=== PATIENT | female | born 1980 | race Caucasian/White ===

== ENCOUNTER 2020-02-27 06:14 | Inpatient (IN) | payer SELFPAY ==
--- NOTE | 2020-02-26 06:41 | PCM.LDHP ---
L&D History of Present Illness - General Date of Service: 02/27/20 Admit Problem/Dx: Admission Diagnosis/Problem Admission Diagnosis/Problem 02/26/20 06:26 Tasha is a 39-year-old 5 para 4004 white female who was admitted for medical induction on 02/27/2020 at a gestational age of 38-2/7 weeks and an MAKAYLA of 03/10/2020 with a diagnosis of synechial band within the uterus complicating . Source of Information: Patient History Limitations: Reports: No Limitations - History of Present Illness Introduction:: Tasha is a 39-year-old 5 para 4004 white female who was admitted for medical induction on 02/27/2020 at a gestational age of 38-2/7 weeks and an MAKAYLA of 03/10/2020 with a diagnosis of synechial band within the uterus complicating .Procedure/process of induction of labor its risks, benefits and alternatives of care including allowing for natural onset of labor all discussed in detail with patient. She appears to understand and wishes to proceed. LOG BRANDER history: Tasha is a 5 para 4004. Her MAKAYLA is 03/10/2020 is based upon a certain last menstrual period starting 06/04/2019 and supported by numerous ultrasounds during the course of the . She is noted at her 24 week ultrasound that she had a hypo-coiled cord and a synechial band seen within the uterus. Patient is followed on a very regular basis with biophysical profiles after 32 weeks which showed normal growth. Her biophysical Profiles have always been 8/8 indicating well-being. She is admitted for induction of labor because of the hypo-coiled cord and the synechial band. She had menarche at age 12. Cycles every 28 days. She is not using any control at the time of conception. Her last menstrual period was definite. Her course was initiated at 11 weeks and 2 days. She was seen on a very regular basis throughout the . Her weight gain was from 173 pounds up to 183 pounds for a 10 pound increase. Patient had an abnormal glucose tolerance test and was diagnosed with gestational diabetes. She has been diet controlled with good blood sugar results. She has a history of slightly decreased platelet count. She has desire for epidural in labor. She underwent prequel noninvasive testing early in the and this was normal. She had her flu shot on 08/09/2019. She is hypothyroid on replacement, clinically euthyroid with normal laboratory testing on most recent evaluation in the .. Her group B strep screen is negative. Patient is rubella immune. Past obstetric history includes the followin. Male infant born 02/24/2007 at 40 weeks gestational age�13 hours of labor�7 lbs. 3 oz.�[place], [place]�forceps delivery�epidural�child's name is Naldo 2. Male infant born 1 [id number]�40 weeks gestational age�7 hours labor�7 lbs. 3 oz.� �epidural�[place]'s name is Arnie 3. Female infant born 72 weeks gestational age�7 hours of labor�7 lbs. 0 oz.��epidural�[place]'s name is Rossy 4. Male born 326 weeks gestational age�7 hours labor�8 lbs. 6 oz. ��epidural�[place]'s name is Ethan Laboratory testing and shows blood to be AB+. Antibody screen is negative. At first visit Hemoglobin is 12.4 g/dL. And Platelets were 189,000. She is rubella immune. Hepatitis B surface antigen and HIV assays were both negative. Gonorrhea and chlamydia tests were negative. TSH on 09/18/2019 was 4.429 units per milliliter. Second trimester hemoglobin was 11.3 g/dL and platelets are 167,000. Her 1 hour glucose was 152. Three-hour glucose was abnormal with a fasting sugar of 86. Her 1 hour sugar was 205, 2 hour sugar 216 three-hour sugar 107. Follow-up CBC on 01/16/2020 showed platelets of 149,000 and hemoglobin 11.9%. RPR was nonreactive. Group B strep screen was negative. Allergies: None Medications: 1. Levothyroxine sodium 125 �g per day 2. Citalopram 20 mg by mouth daily 3. vitamins daily Past medical history: 1. Anxiety on meds 2. Hypothyroidism secondary to thyroidectomy in 2006 3. History of abnormal Pap smear status post LEEP 2004 Past surgical history: 1. LEEP for cervical dysplasia 2004 2. Thyroidectomy 2006 Family history: Nephew of mother has autism. Mother is alive and well but did have a heart attack at age 62. Father is alive with history of melanoma. Maternal grandmother is at age 47 from an [place]. Maternal grandfather age 95 cause unknown. No family history of bleeding or anesthesia problems or -related problems. Social history: Patient is . She lives in [place], [place]. She is an financial accountant. She is a college graduate. 's name is Keo. She does not use any significant amounts of alcohol, drugs or tobacco. Review of systems: In general patient has no complaints. AB has been active. Skin: Negative Lungs: No infectious symptoms or shortness of breath Cardiovascular: No chest pain or exercise intolerance Breasts: No lumps, changes in size, pain, dimpling, discharge or axillary or supraclavicular concerns. Changes associated with . Patient plans to breast-feed GI: Negative : Body habitus changes associated with . Musculoskeletal: Negative Neurological: Negative In general the patient is well-developed, well-nourished, pleasant female of stated age in no acute distress. Skin is warm dry without lesions. HEENT, neck and back within normal limits. Lungs are clear with good breath sounds in all lung tian. Cardiovascular exam shows regular and rhythm without murmurs. Breast exam is deferred having been done at first visit found to be normal is not repeated at this time. Abdomen is gravid with fundal height of 38 cm. Baby in vertex presentation by Sixto maneuver.. Genital per digital exam on 02/20/2020 shows cervix to be 2 placentas, 60% effaced, soft, posterior, -4 position.. Extremities and neurological exam are grossly within normal limits. H&P Review of Systems - Review of Systems: Review Of Systems: See Below L&D Exam - Exam Exam: See Below Problem List Initiated/Reviewed/Updated: Yes Assessment/Plan Comment:: 1. 38-2/7 week gestation on 02/27/2020 at the time of admission for a medical induction done for uterine synechial band and hypo coiled umbilical cord. 2.Group B strep negative 3. Desires epidural in labor and delivery 4. Gestational diabetes�diet controlled 5. History of hypothyroidism secondary to thyroidectomy on replacement� clinically euthyroid with normal thyroid labs on most recent evaluation 6. Prequel noninvasive testing within normal limits for trisomy 21, 18 , 13. 7. Anxiety�has been on citalopram throughout the . 8. Mildly decreased platelets�on most recent evaluation should be adequate for regional anesthesia if desired. 9. Patient has received her flu immunization during 10. Patient plans to breast-feed. Plan: 1. Pitocin induction of labor with AROM augmentation. 2. Epidural when necessary 3. Support breast-feeding plan 4. CBC and RPR upon admission 5. Closely monitor heart tones 6. Continue levothyroxin .
[2020-02-27] MEDS ORDERED: Ondansetron 4 MG/2 ML SDV IVPUSH PRN (07:42)
[2020-02-27] MEDS ORDERED: Sodium Chloride 0.9% 10 ML Syringe FLUSH PRN (07:42)
[2020-02-27] MEDS ORDERED: Nalbuphine 10 MG/ML Syringe IVPUSH PRN (07:42)
[2020-02-27] MEDS ORDERED: Oxytocin/Lactated Ringers 10 UNIT/1,000 ML BAG IV SCH ×2 (07:45)
[2020-02-27] MEDS: Lactated Ringers 1,000 ML IV SCH ×2 (08:02→14:02)
--- NOTE | 2020-02-27 09:46 | PCM.PREANE ---
Preanesthetic Assessment - Anesthesia/Transfusion/Family Hx Anesthesia History: Prior Anesthesia Without Reaction Transfusion History: No Prior Transfusion(s) Type of Transfusion Reactions: Reports: Unknown - Review of Systems General: No Symptoms Pulmonary: No Symptoms Cardiovascular: No Symptoms Gastrointestinal: No Symptoms Neurological: No Symptoms Other: Reports: Diabetes (Gestational) - Physical Assessment Vital Signs: Last Vital Signs Temp 98.3 F 02/27/20 07:42 Pulse 72 02/27/20 07:42 Resp 16 02/27/20 07:42 BP 118/64 02/27/20 07:42 Pulse Ox 98 02/27/20 07:42 Height: 1.68 m Weight: 84.368 kg ASA Class: 2 Mental Status: Alert & Oriented x3 Airway Class: Mallampati = 2 Dentition: Reports: Normal Dentition Thyro-Mental Finger Breadths: 3 Mouth Opening Finger Breadths: 3 ROM/Head Extension: Full Lungs: Clear to Auscultation, Normal Respiratory Effort - Lab Values: Laboratory Last Values WBC 8.70 K/mm3 (3.98-10.04) 02/27/20 08:00 RBC 3.98 M/mm3 (3.98-5.22) 02/27/20 08:00 Hgb 11.8 gm/dl (11.2-15.7) 02/27/20 08:00 Hct 36.6 % (34.1-44.9) 02/27/20 08:00 MCV 92.0 fl (79.4-94.8) 02/27/20 08:00 MCH 29.6 pg (25.6-32.2) 02/27/20 08:00 MCHC 32.2 g/dl (32.2-35.5) 02/27/20 08:00 RDW Std Deviation 45.1 fL (36.4-46.3) 02/27/20 08:00 Plt Count 131 K/mm3 (182-369) L 02/27/20 08:00 MPV 11.8 fl (9.4-12.3) 02/27/20 08:00 Neut % (Auto) 73.4 % (34.0-71.1) H 02/27/20 08:00 Lymph % (Auto) 16.7 % (19.3-51.7) L 02/27/20 08:00 Hunt % (Auto) 8.4 % (4.7-12.5) 02/27/20 08:00 Eos % (Auto) 0.8 (0.7-5.8) 02/27/20 08:00 Baso % (Auto) 0.1 % (0.1-1.2) 02/27/20 08:00 Neut # (Auto) 6.39 K/mm3 (1.56-6.13) H 02/27/20 08:00 Lymph # (Auto) 1.45 K/mm3 (1.18-3.74) 02/27/20 08:00 Hunt # (Auto) 0.73 K/mm3 (0.24-0.36) H 02/27/20 08:00 Eos # (Auto) 0.07 K/mm3 (0.04-0.36) 02/27/20 08:00 Baso # (Auto) 0.01 K/mm3 (0.01-0.08) 02/27/20 08:00 - Allergies Allergies/Adverse Reactions: Allergies Allergy/AdvReac Type Severity Reaction Status Date / Time No Known Allergies Allergy Verified 02/27/20 07:42 - Acknowledgements Anesthesia Type Planned: Epidural Pt an Appropriate Candidate for the Planned Anesthesia: Yes Alternatives and Risks of Anesthesia Discussed w Pt/Guardian: Yes Pt/Guardian Understands and Agrees with Anesthesia Plan: Yes PreAnesthesia Questionnaire TRAFFIC CIRCUIT ENGINEER History: Reports: , Other (See Below) Other OB/BYN History: synechial band Psychiatric History: Reports: Anxiety Endocrine/Metabolic History: Reports: Diabetes, Gestational, Hypothyroidism, Other (See Below) Other Endocrine/Metabolic History: Thyroid removed 2006 Immunologic History: Reports: None - Past Surgical History Endocrine Surgical History: Reports: Thyroidectomy - SUBSTANCE USE Smoking Status *Q: Never Smoker Second Hand Smoke Exposure: No Recreational Drug Use History: No - HOME MEDS Home Medications: Home Meds Citalopram [Citalopram HBr] 20 mg PO DAILY 02/27/20 [History] Levothyroxine Sodium [Levoxyl] 125 mcg PO DAILY 02/27/20 [History] Pnv No.95/Ferrous Fum/Folic AC [ Tablet] 1 tab PO DAILY 02/27/20 [ History] - CURRENT (IN HOUSE) MEDS Current Meds: Current Medications Lactated Ringer's (Ringers, Lactated) 1,000 mls @ 100 mls/hr IV ASDIRECTED REJI Last Admin: 02/27/20 08:02 Dose: 100 mls/hr Oxytocin/Lactated Ringer's (Pitocin In Lr 10 Units/1,000 Ml) 10 unit in 1,000 mls @ 12 mls/hr IV TITRATE REJI; Protocol Last Admin: 02/27/20 08:03 Dose: 2 munits/min, 12 mls/hr Oxytocin/Lactated Ringer's (Pitocin In Lr 10 Units/1,000 Ml) 10 unit in 1,000 mls @ 100 mls/hr IV .CONTINUOUS REJI Nalbuphine HCl (Nubain) 10 mg IVPUSH Q2H PRN PRN Reason: Pain Ondansetron HCl (Zofran) 4 mg IVPUSH Q4H PRN PRN Reason: Nausea/Vomiting Sodium Chloride (Saline Flush) 10 ml FLUSH ASDIRECTED PRN PRN Reason: Keep Vein Open
[2020-02-27] MEDS ORDERED: ePHEDrine 50 MG/ML SDV IVPUSH PRN (09:50)
[2020-02-27] MEDS ORDERED: Bupivacaine/fentaNYL/NS 100 ML Bag EPIDUR PRN (09:50)
[2020-02-27] MEDS ORDERED: fentaNYL 100 MCG/2 ML SDV EPIDUR PRN (09:50)
[2020-02-27] MEDS ORDERED: diphenhydrAMINE 50 MG/ML SDV IVPUSH PRN (09:50)
--- NOTE | 2020-02-27 17:10 | PCM.SN.2 ---
- Free Text/Narrative Note: Tasha is a 39-year-old 5 para 4004 white female who was admitted for medical induction on 02/27/2020 at a gestational age of 38-2/7 weeks and an MAKAYLA of 03/10/2020 with a diagnosis of synechial band within the uterus complicating .She was started on Pitocin induction at approximately 800 hours on 02/26. She began having irregular labor pattern and at approximately 4 cm had an epidural placed for labor analgesia. heart tones remained reassuring. She progressed steadily and at approximately 1622 hrs. she became completely dilated. She pushed for approximately 20 minutes and at 1641 hrs. on 02/27/2020 she delivered a viable, lorenzana, female infant in direct occiput posterior position. The baby weighed 2970 g (6 pounds 8.8 ounces), had Apgars of 8 and 9 and a length of 20.0 inches. The baby's name is Rosalba Henning. The baby was placed on mom's abdomen. The umbilical cord was allowed to pulsate for approximately 2-3 minutes. The nose and mouth were bulb suctioned and the baby was dried and stimulated. Pitocin was increased to 500 mL per hour to facilitate increased uterine tone and decrease likelihood of bleeding. The cord was clamped �2 and cut by the baby's father Keo. Cord blood was obtained. The placenta was delivered in a Mcdonald presentation, appeared intact and complete and was discarded per patient desire. A small second-degree perineal laceration extending down onto the left perineum in an arcuate fashion proficiently was then repaired with 3-0 Monocryl in a routine fashion. A labor epidural analgesia was used for perineal anesthesia and patient tolerated the procedure well. Patient plans to breast-feed. Estimated blood loss 100 mL. Patient's condition: Good.
[2020-02-27] MEDS ORDERED: Docusate Sodium 100 MG Cap PO PRN (17:45)
[2020-02-27] MEDS ORDERED: Witch Hazel Medicated Pads 40/Jar TOP PRN (17:45)
[2020-02-27] MEDS ORDERED: Benzocaine/Menthol 20%-0.5% Spray 56 GM Canister TOP PRN (17:45)
[2020-02-27] MEDS ORDERED: Acetaminophen 325 MG Tab PO PRN (17:45)
[2020-02-28] MEDS ORDERED: Bupivacaine 0.25% 10 ML SDV ONE
[2020-02-28] MEDS ORDERED: Levothyroxine 125 MCG Tab PO SCH (06:00)
--- NOTE | 2020-02-28 06:48 | PCM.SN.2 ---
- Free Text/Narrative Note: note: Patient is doing well in the period. Minimal lochia, voiding well, ambulated without problems. Nursing without concerns. Patient is afebrile, vital signs are stable Abdomen is flat, soft, uterus is below the umbilicus and is firm and nontender. Legs are nontender. Assessment: recovery going well. Plan: Routine care. Patient be discharged home within the next 24-48 hours.
--- NOTE | 2020-02-28 07:36 | PCM48HPAN ---
Post Anesthesia Note - EVALUATION WITHIN 48HRS OF ANESTHETIC Vital Signs in Normal Range: Yes Patient Participated in Evaluation: Yes Respiratory Function Stable: Yes Airway Patent: Yes Cardiovascular Function Stable: Yes Hydration Status Stable: Yes Pain Control Satisfactory: Yes Nausea and Vomiting Control Satisfactory: Yes Mental Status Recovered: Yes Vital Signs: Last Vital Signs Temp 36.3 C 02/28/20 03:00 Pulse 63 02/28/20 03:00 Resp 12 02/28/20 03:00 BP 109/56 L 02/28/20 03:00 Pulse Ox 96 02/28/20 03:00
[2020-02-28] MEDS ORDERED: Prenatal Multivitamin with Calcium/Folic Acid/Iron Tab PO SCH ×2 (09:00)
[2020-02-28] MEDS ORDERED: Citalopram 20 MG Tab PO SCH (09:00)
[2020-02-28] MEDS: Ibuprofen 600 MG Tab PO PRN ×2 (09:03→14:12)
--- NOTE | 2020-02-28 10:01 | PCM.DCSUM1 ---
Discharge Summary - Hospital Course Free Text/Narrative:: Tasha is a 39-year-old 5 para 4004 white female who was admitted for medical induction on 02/27/2020 at a gestational age of 38-2/7 weeks and an MAKAYLA of 03/10/2020 with a diagnosis of synechial band within the uterus complicating .She was started on Pitocin induction at approximately 800 hours on 02/26. She began having irregular labor pattern and at approximately 4 cm had an epidural placed for labor analgesia. heart tones remained reassuring. She progressed steadily and at approximately 1622 hrs. she became completely dilated. She pushed for approximately 20 minutes and at 1641 hrs. on 02/27/2020 she delivered a viable, lorenzana, female in direct occiput posterior position. The baby weighed 2970 g (6 pounds 8.8 ounces), had Apgars of 8 and 9 and a length of 20.0 inches. The baby's name is Rosalba Henning. The baby was placed on mom's abdomen. The umbilical cord was allowed to pulsate for approximately 2-3 minutes. The nose and mouth were bulb suctioned and the baby was dried and stimulated. Pitocin was increased to 500 mL per hour to facilitate increased uterine tone and decrease likelihood of bleeding. The cord was clamped �2 and cut by the baby's father Keo. Cord blood was obtained. The placenta was delivered in a Mcdonald presentation, appeared intact and complete and was discarded per patient desire. A small second-degree perineal laceration extending down onto the left perineum in an arcuate fashion proficiently was then repaired with 3-0 Monocryl in a routine fashion. A labor epidural analgesia was used for perineal anesthesia and patient tolerated the procedure well. Patient plans to breast-feed. Estimated blood loss 100 mL. Pertinent patient has done very well. She is ambulating well, has minimal lochia. She is nursing without problems. Vital signs stable. Patient is desiring discharge home. Patient's condition: Good. Diagnosis: Stroke: No - Discharge Data Discharge Date: 02/28/20 Discharge Disposition: Home, Self-Care 01 Condition: Good - Referral to Home Health Primary Care Physician: Sb Hernández MD - Patient Instructions Diet: Regular Diet as Tolerated (Nursing diet with increased calories and calcium as recommended.) Activity: As Tolerated (No intercourse or tampons until bleeding resolves) Driving: May Drive Today ( ) Showering/Bathing: May Shower (May take a bath) Notify Provider of: Fever, Increased Pain, Swelling and Redness, Nausea and/or Vomiting - Discharge Plan Home Medications: Home Meds Citalopram [Citalopram HBr] 20 mg PO DAILY 02/27/20 [History] Levothyroxine Sodium [Levoxyl] 125 mcg PO DAILY 02/27/20 [History] Pnv No.95/Ferrous Fum/Folic AC [ Tablet] 1 tab PO DAILY 02/27/20 [ History] Acetaminophen [Tylenol] 650 mg PO Q4H PRN tablet 02/28/20 [Rx] Ibuprofen [Motrin] 600 mg PO Q4H PRN tablet 02/28/20 [Rx] Referrals: Sb Hernández MD [Primary Care Provider] - (Patient should call clinic for a telehealth appointment for 2 weeks .) - Discharge Summary/Plan Comment DC Time >30 min.: No Discharge Summary/Plan Comment: Discharge instructions: 1. Discharge home 2. Diet, activity and follow-up discussed with patient. Recommend nursing diet with increased calories and calcium. 3. Precautions given concern increased pain, bleeding, temperature, signs/ symptoms of DVT/PE. 4. Medications per home medication was printed, discussed with and given to the patient. 5. Patient to call the clinic for a telehealth appointment to be scheduled 2 weeks following delivery. Diagnosis: Term -delivered Condition: Good - Patient Data Vitals - Most Recent: Last Vital Signs Temp 36.3 C 02/28/20 03:00 Pulse 63 02/28/20 03:00 Resp 12 02/28/20 03:00 BP 109/56 L 02/28/20 03:00 Pulse Ox 96 02/28/20 03:00 Weight - Most Recent: 84.368 kg I&O - Last 24 hours: Intake & Output 02/27/20 02/28/20 02/28/20 22:59 06:59 14:59 Intake Total 2800 Output Total 400 Balance 2400 Lab Results - Last 24 hrs: Laboratory Results - last 24 hr 02/27/20 Range/Units 08:00 RPR Non-reactive (NONREACTIVE) Med Orders - Current: Current Medications Acetaminophen (Tylenol) 650 mg PO Q4H PRN PRN Reason: mild pain or fever Benzocaine/Menthol (Dermoplast Pain Relief Ramer) 0 gm TOP ASDIRECTED PRN PRN Reason: Perineal Comfort Measure Citalopram Hydrobromide (Celexa) 20 mg PO DAILY REJI Docusate Sodium (Colace) 100 mg PO BID PRN PRN Reason: Constipation Ibuprofen (Motrin) 600 mg PO Q4H PRN PRN Reason: Mild pain or fever Last Admin: 02/28/20 09:03 Dose: 600 mg Levothyroxine Sodium (Levothyroxine) 125 mcg PO ACBREAKFAST REJI Last Admin: 02/28/20 06:15 Dose: 125 mcg Prenat Multivit/Hitchcock/Iron/Folic Ac ( Plus Iron) 1 each PO DAILY REJI Last Admin: 02/28/20 09:02 Dose: 1 each Witch Vicki (Tucks) 1 pad TOP ASDIRECTED PRN PRN Reason: Perineal Comfort Measure Discontinued Medications Bupivacaine HCl (Sensorcaine-Mpf 0.25%) 10 ml .ROUTE .[facility] ONE Stop: 02/28/20 00:01 Diphenhydramine HCl (Benadryl) 25 mg IVPUSH Q6H PRN PRN Reason: pruritis Ephedrine Sulfate (Ephedrine Sulfate) 5 mg IVPUSH ASDIRECTED PRN PRN Reason: Hypotension Fentanyl (Sublimaze) 100 mcg EPIDUR Q3H PRN PRN Reason: Pain Last Admin: 02/27/20 14:04 Dose: 100 mcg Fentanyl/Bupivacaine HCl (Fentanyl/Bupivacaine/Ns 2 Mcg-0.125% 100 Ml) 100 ml EPIDUR ASDIRECTED PRN PRN Reason: Pain Last Admin: 02/27/20 14:04 Dose: 100 ml Lactated Ringer's (Ringers, Lactated) 1,000 mls @ 100 mls/hr IV ASDIRECTED REJI Last Admin: 02/27/20 14:02 Dose: 100 mls/hr Oxytocin/Lactated Ringer's (Pitocin In Lr 10 Units/1,000 Ml) 10 unit in 1,000 mls @ 12 mls/hr IV TITRATE REJI; Protocol Last Titration: 02/27/20 12:27 Dose: 18 munits/min, 108 mls/hr Oxytocin/Lactated Ringer's (Pitocin In Lr 10 Units/1,000 Ml) 10 unit in 1,000 mls @ 100 mls/hr IV .CONTINUOUS REJI Nalbuphine HCl (Nubain) 10 mg IVPUSH Q2H PRN PRN Reason: Pain Ondansetron HCl (Zofran) 4 mg IVPUSH Q4H PRN PRN Reason: Nausea/Vomiting Prenat Multivit/Hitchcock/Iron/Folic Ac ( Plus Iron) 1 each PO DAILY REJI Sodium Chloride (Saline Flush) 10 ml FLUSH ASDIRECTED PRN PRN Reason: Keep Vein Open
== END 2020-02-28 18:05 | disposition home or self-care (01) | DRG 807 ==
LOC: JD.OB 06:55 → OBSVTOIN 16:41 → JD.MS 16:42
PROVIDERS: ADMIT Obstetrics & Gynecology; ATTEND Obstetrics & Gynecology
PROC: 10E0XZZ Delivery of Products of Conception, External Approach (ICD-10-PCS; principal; 2020-02-27)
PROC: 0KQM0ZZ Repair Perineum Muscle, Open Approach (ICD-10-PCS; 2020-02-27)
PROC: 3E033VJ Introduction of Other Hormone into Peripheral Vein, Percutaneous Approach (ICD-10-PCS; 2020-02-27)
PROC: 3E0R3BZ Introduction of Anesthetic Agent into Spinal Canal, Percutaneous Approach (ICD-10-PCS; 2020-02-27)
DX: O34.593 Maternal care for other abnormalities of gravid uterus, third trimester (principal); Z37.0 Single live birth; N85.6 Intrauterine synechiae; O70.1 Second degree perineal laceration during delivery; O24.420 Gestational diabetes mellitus in childbirth, diet controlled; O99.344 Other mental disorders complicating childbirth; F41.9 Anxiety disorder, unspecified; O99.284 Endocrine, nutritional and metabolic diseases complicating childbirth; E03.9 Hypothyroidism, unspecified; Z3A.38 38 weeks gestation of pregnancy
CPT/HCPCS: 01967; 36415; 51702; 59025; 59409; 85025; 86592; A9270-GY; J2590; J3010; J3490; J7120

== ENCOUNTER 2020-06-23 06:52 | Inpatient (IN) | payer SELFPAY ==
[2020-06-23] MEDS ORDERED: Sodium Chloride 0.9% 10 ML Syringe FLUSH PRN (08:08)
[2020-06-23] MEDS ORDERED: Sodium Chloride 0.9% 1,000 ML IV STA (08:08)
[2020-06-23] MEDS ORDERED: Ondansetron 4 MG/2 ML SDV IVPUSH ONE ×2 (08:08→11:40)
[2020-06-23] MEDS ORDERED: HYDROmorphone 1 MG/ML Syringe IVPUSH ONE (08:09)
--- NOTE | 2020-06-23 09:03 | EDM.PDOC ---
ED HPI GENERAL MEDICAL PROBLEM - General Chief Complaint: Abdominal Pain Stated Complaint: R SIDE ABDOMINAL PAIN Time Seen by Provider: 06/23/20 08:04 Source of Information: Reports: Patient History Limitations: Reports: No Limitations - History of Present Illness INITIAL COMMENTS - FREE TEXT/NARRATIVE: The patient presents with RUQ abdominal pain, nausea and vomiting. This started yesterday early in the morning. The pain was in the upper abdomen and then localized to the RUQ. She cannot keep anything down. She still has her gallbladder and appendix. She is post 4 months now. She has no dysuria. She did have some loose stools. She has no fever but she did have chills. She has no cough, chest pain or shortness of breath. Onset: Gradual Duration: Day(s): (Yesterday) Location: Reports: Abdomen Quality: Reports: Sharp Severity: Moderate Improves with: Reports: None Worsens with: Reports: None Associated Symptoms: Reports: Fever/Chills, Nausea/Vomiting. Denies: Chest Pain, Cough, Headaches, Shortness of Breath Right Upper Abdomen Pain Score (Numeric/FACES): 9 - Related Data Allergies Allergy/AdvReac Type Severity Reaction Status Date / Time No Known Allergies Allergy Verified 06/23/20 07:54 Home Meds: Home Meds Citalopram [Citalopram HBr] 20 mg PO DAILY 02/27/20 [History] Levothyroxine Sodium [Levoxyl] 125 mcg PO DAILY 02/27/20 [History] Pnv No.95/Ferrous Fum/Folic AC [ Tablet] 1 tab PO DAILY 02/27/20 [History] Acetaminophen [Tylenol] 650 mg PO Q4H PRN tablet 02/28/20 [Rx] Ibuprofen [Motrin] 600 mg PO Q4H PRN tablet 02/28/20 [Rx] Past Medical History HEENT History: Reports: Impaired Vision [employer] History: Reports: , Other (See Below) Other [employer] History: synechial band Psychiatric History: Reports: Anxiety Endocrine/Metabolic History: Reports: Diabetes, Gestational, Hypothyroidism, Other (See Below) Other Endocrine/Metabolic History: Thyroid removed 2006 Immunologic History: Reports: None - Past Surgical History Endocrine Surgical History: Reports: Thyroidectomy Social & Family History - Family History Family Medical History: Noncontributory - Tobacco Use Smoking Status *Q: Never Smoker - Caffeine Use Caffeine Use: Reports: Coffee - Recreational Drug Use Recreational Drug Use: No ED ROS GENERAL - Review of Systems Review Of Systems: See Below Constitutional: Reports: Chills. Denies: Fever HEENT: Reports: No Symptoms Respiratory: Reports: No Symptoms Cardiovascular: Reports: No Symptoms Endocrine: Reports: No Symptoms GI/Abdominal: Reports: Abdominal Pain, Diarrhea, Nausea, Vomiting : Reports: No Symptoms ED EXAM, GI/ABD - Physical Exam Exam: See Below Exam Limited By: No Limitations General Appearance: Alert, No Apparent Distress Ears: Normal External Exam Nose: Normal Inspection Head: Atraumatic, Normocephalic Neck: Normal Inspection Respiratory/Chest: No Respiratory Distress, Lungs Clear, Normal Breath Sounds Cardiovascular: Regular Rate, Rhythm, No Edema, No Murmur GI/Abdominal Exam: Soft, No Organomegaly, No Mass, Tender (Moderate tenderness to the upper abdomen with more pain to the RUQ) Course - Vital Signs Last Recorded V/S: Last Vital Signs Temp 98.5 F 06/23/20 07:44 Pulse 64 06/23/20 07:44 Resp 14 06/23/20 07:44 BP 122/66 06/23/20 07:44 Pulse Ox 99 06/23/20 07:44 - Orders/Labs/Meds Orders: Active Orders 24 hr Category Date Time Status Peripheral IV Care [RC] . DIRECTED Care 06/23/20 08:08 Active Lactated Ringers [Ringers, Lactated] 1,000 ml Med 06/23/20 10:45 Active IV ASDIRECTED Sodium Chloride 0.9% [Saline Flush] Med 06/23/20 08:08 Active 10 ml FLUSH ASDIRECTED PRN ED Antiemetic Medication Reflex [OM.PC] Stat Oth 06/23/20 08:08 Ordered Peripheral IV Insertion Adult [OM.PC] Stat Oth 06/23/20 08:08 Ordered Medication Orders Lactated Ringer's (Ringers, Lactated) 1,000 mls @ 100 mls/hr IV ASDIRECTED REJI Last Admin: 06/23/20 11:22 Dose: 100 mls/hr Documented by: ALBA Sodium Chloride (Saline Flush) 10 ml FLUSH ASDIRECTED PRN PRN Reason: Keep Vein Open Last Admin: 06/23/20 08:52 Dose: 10 ml Documented by: LEE Labs: Laboratory Tests 06/23/20 06/23/20 06/23/20 Range/Units 08:55 08:55 08:55 WBC 12.24 H (3.98-10.04) K/mm3 RBC 4.63 (3.98-5.22) M/mm3 Hgb 13.4 D (11.2-15.7) gm/dl Hct 41.6 (34.1-44.9) % MCV 89.8 (79.4-94.8) fl MCH 28.9 (25.6-32.2) pg MCHC 32.2 (32.2-35.5) g/dl RDW Std Deviation 44.8 (36.4-46.3) fL Plt Count 200 (182-369) K/mm3 MPV 11.2 (9.4-12.3) fl Neut % (Auto) 85.3 H (34.0-71.1) % Lymph % (Auto) 6.5 L (19.3-51.7) % [place] % (Auto) 7.8 (4.7-12.5) % Eos % (Auto) 0.1 L (0.7-5.8) Baso % (Auto) 0.1 (0.1-1.2) % Neut # (Auto) 10.44 H (1.56-6.13) K/mm3 Lymph # (Auto) 0.80 L (1.18-3.74) K/mm3 [place] # (Auto) 0.95 H (0.24-0.36) K/mm3 Eos # (Auto) 0.01 L (0.04-0.36) K/mm3 Baso # (Auto) 0.01 (0.01-0.08) K/mm3 Manual Slide Review Abnormal smear Sodium 137 (136-145) mEq/L Potassium 3.8 (3.5-5.1) mEq/L Chloride 101 (98-107) mEq/L Carbon Dioxide 28 (21-32) mEq/L Anion Gap 11.8 (5-15) BUN 14 (7-18) mg/dL Creatinine 0.8 (0.55-1.02) mg/dL Est Cr Clr Drug Dosing 87.51 mL/min Estimated GFR (MDRD) > 60 (>60) mL/min BUN/Creatinine Ratio 17.5 (14-18) Glucose 148 H (74-106) mg/dL Calcium 8.7 (8.5-10.1) mg/dL Total Bilirubin 4.1 H (0.2-1.0) mg/dL AST 445 H (15-37) U/L ALT 573 H (14-59) U/L Alkaline Phosphatase 152 H (46-116) U/L Total Protein 8.0 (6.4-8.2) g/dl Albumin 4.0 (3.4-5.0) g/dl Globulin 4.0 gm/dL Albumin/Globulin Ratio 1.0 (1-2) Lipase 21485 H (73-393) U/L HCG, Qual Negative (NEGATIVE) Urine Color (Yellow) Urine Appearance (Clear) Urine pH (5.0-8.0) Ur Specific [place] (1.005-1.030) Urine Protein (Negative) Urine Glucose (UA) (Negative) Urine Ketones (Negative) Urine Occult Blood (Negative) Urine Nitrite (Negative) Urine Bilirubin (Negative) Urine Urobilinogen (0.2-1.0) Ur Leukocyte Esterase (Negative) Urine RBC (0-5) /hpf Urine WBC (0-5) /hpf Ur Squamous Epith Cells (0-5) /hpf Amorphous Sediment (NOT SEEN) /hpf Urine Bacteria (FEW) /hpf Urine Mucus (FEW) /hpf 06/23/ Range/Units 10:45 WBC (3.98-10.04) K/mm3 RBC (3.98-5.22) M/mm3 Hgb (11.2-15.7) gm/dl Hct (34.1-44.9) % MCV (79.4-94.8) fl MCH (25.6-32.2) pg MCHC (32.2-35.5) g/dl RDW Std Deviation (36.4-46.3) fL Plt Count (182-369) K/mm3 MPV (9.4-12.3) fl Neut % (Auto) (34.0-71.1) % Lymph % (Auto) (19.3-51.7) % [place] % (Auto) (4.7-12.5) % Eos % (Auto) (0.7-5.8) Baso % (Auto) (0.1-1.2) % Neut # (Auto) (1.56-6.13) K/mm3 Lymph # (Auto) (1.18-3.74) K/mm3 [place] # (Auto) (0.24-0.36) K/mm3 Eos # (Auto) (0.04-0.36) K/mm3 Baso # (Auto) (0.01-0.08) K/mm3 Manual Slide Review Sodium (136-145) mEq/L Potassium (3.5-5.1) mEq/L Chloride (98-107) mEq/L Carbon Dioxide (21-32) mEq/L Anion Gap (5-15) BUN (7-18) mg/dL Creatinine (0.55-1.02) mg/dL Est Cr Clr Drug Dosing mL/min Estimated GFR (MDRD) (>60) mL/min BUN/Creatinine Ratio (14-18) Glucose (74-106) mg/dL Calcium (8.5-10.1) mg/dL Total Bilirubin (0.2-1.0) mg/dL AST (15-37) U/L ALT (14-59) U/L Alkaline Phosphatase (46-116) U/L Total Protein (6.4-8.2) g/dl Albumin (3.4-5.0) g/dl Globulin gm/dL Albumin/Globulin Ratio (1-2) Lipase (73-393) U/L HCG, Qual (NEGATIVE) Urine Color [place] H (Yellow) Urine Appearance Clear (Clear) Urine pH 6.5 (5.0-8.0) Ur Specific [place] 1.025 (1.005-1.030) Urine Protein 1+ H (Negative) Urine Glucose (UA) Negative (Negative) Urine Ketones 2+ H (Negative) Urine Occult Blood Negative (Negative) Urine Nitrite Negative (Negative) Urine Bilirubin 3+ H (Negative) Urine Urobilinogen 4.0 H (0.2-1.0) Ur Leukocyte Esterase Negative (Negative) Urine RBC 0-5 (0-5) /hpf Urine WBC 0-5 (0-5) /hpf Ur Squamous Epith Cells 5-10 H (0-5) /hpf Amorphous Sediment Moderate H (NOT SEEN) /hpf Urine Bacteria Few (FEW) /hpf Urine Mucus Many H (FEW) /hpf Meds: Medications Generic Name Dose Route Start Last Admin Trade Name Constance PRN Reason Stop Dose Admin Lactated Ringer's 1,000 mls @ 100 mls/hr 06/23/20 10:45 06/23/20 11:22 Ringers, Lactated IV 100 mls/hr ASDIRECTED REJI Administration Sodium Chloride 10 ml 06/23/20 08:08 06/23/20 08:52 Saline Flush FLUSH 10 ml ASDIRECTED PRN Administration Keep Vein Open Discontinued Medications Generic Name Dose Route Start Last Admin Trade Name Constance PRN Reason Stop Dose Admin Fentanyl 100 mcg 06/23/20 12:17 06/23/20 13:18 Sublimaze IVPUSH 06/23/20 12:18 50 mcg ONETIME ONE Administration Hydromorphone HCl 1 mg 06/23/20 08:09 06/23/20 08:51 Dilaudid IVPUSH 06/23/20 08:10 1 mg ONETIME ONE Administration Hydromorphone HCl 0.5 mg 06/23/20 10:48 06/23/20 10:56 Dilaudid IVPUSH 06/23/20 10:49 0.5 mg ONETIME ONE Administration Sodium Chloride 1,000 mls @ 1,000 mls/hr 06/23/20 08:08 06/23/20 08:51 Normal Saline IV 06/23/20 09:07 1,000 mls/hr .BOLUS STA Administration Ceftriaxone Sodium 2 gm/ 100 mls @ 200 mls/hr 06/23/20 10:31 06/23/20 10:42 Sodium Chloride IV 06/23/20 11:00 200 mls/hr ONETIME ONE Administration Ondansetron HCl 4 mg 06/23/20 08:08 06/23/20 08:51 Zofran IVPUSH 06/23/20 08:09 4 mg ONETIME ONE Administration Ondansetron HCl 4 mg 06/23/20 11:40 06/23/20 11:47 Zofran IVPUSH 06/23/20 11:41 4 mg ONETIME ONE Administration - Re-Assessments/Exams Free Text/Narrative Re-Assessment/Exam: 06/23/20 09:03 I ordered an IV NS 1L bolus, zofran 4mg IV, dilaudid 1mg IV, labs, UA and an US of her RUQ. 06/23/20 10:18 Her WBC is elevated at 12.24. Her glucose is elevated at 148. Her total bili is elevated at 4.1. Her AST is elevated at 445. Her ALT is elevated at 573. Her alk phos is elevated at 152. Her lipase was elevated at 10,766. Her HCG is negative. Her US shows small intraluminal findings within the gallbladder either due to poorly shadowing gallstones or small sludge balls. Gallbladder wall shows some slight thickening with adjacent pericholecystic fluid. Early cholecystitis is possible. Common bile duct also at the upper limits of normal at 7mm. Fatty infiltration within the liver with areas of focal fatty sparing next to the gallbladder. No additionally abnormality is appreciated. I called Dr Mantilla and we both agree she must have a stone in the common bile duct. I called [facility] and they are full. I called [facility] in [place] and they will call me back. They called me back and I talked to Dr Giraldo the GI specialist publications designer and he recommended an MRCP. 06/23/20 13:17 Her MRI shows slight gallbladder wall edema. Small amount of fluid around the liver and spleen as well as trace pleural effusions. Edema within the pancreatic head and around the pancreas raising the possibility of pancreatitis. 7mm measurement at the CBD without choledocholithiasis. 06/23/20 13:[address] Giraldo and he did not think the patient needed an ERCP at this time. He recommended admission and trend labs. I called Dr Mantilla and he will come see the patient and admit her. Departure - Departure Time of Disposition: 14:00 Disposition: Admitted As Inpatient 65 Condition: Fair Clinical Impression: Biliary colic, Gall stones Abdominal pain Qualifiers: Abdominal location: right upper quadrant Qualified Code(s): R10.11 - Right upper quadrant pain Pancreatitis Qualifiers: Chronicity: acute Pancreatitis type: biliary Acute pancreatitis complication: no infection or necrosis Qualified Code(s): K85.10 - Biliary acute pancreatitis without necrosis or infection - Discharge Information Referrals: Emelia Gandara NP [Primary Care Provider] - Forms: ED Department Discharge Sepsis Event Note (ED) - Evaluation Sepsis Screening Result: No Definite Risk - Focused Exam Vital Signs: Vital Signs Temp Pulse Resp BP Pulse Ox 06/23/20 07:44 98.5 F 64 14 122/66 99 - My Orders Last 24 Hours: My Active Orders 06/23/20 08:08 Peripheral IV Care [RC] . DIRECTED Sodium Chloride 0.9% [Saline Flush] 10 ml FLUSH ASDIRECTED PRN ED Antiemetic Medication Reflex [OM.PC] Stat Peripheral IV Insertion Adult [OM.PC] Stat 06/23/20 10:45 Lactated Ringers [Ringers, Lactated] 1,000 ml IV ASDIRECTED - Assessment/Plan Last 24 Hours: My Active Orders 06/23/20 08:08 Peripheral IV Care [RC] . DIRECTED Sodium Chloride 0.9% [Saline Flush] 10 ml FLUSH ASDIRECTED PRN ED Antiemetic Medication Reflex [OM.PC] Stat Peripheral IV Insertion Adult [OM.PC] Stat 06/23/20 10:45 Lactated Ringers [Ringers, Lactated] 1,000 ml IV ASDIRECTED
--- NOTE | 2020-06-23 09:20 | US ---
Limited abdominal ultrasound: Multiple real-time images of the upper right abdomen were obtained. Comparison: No prior abdominal imaging. Visualized portions of the pancreas appear within normal limits. Liver is echogenic likely relating to fatty infiltration. Hypoechoic area seen next to the gallbladder compatible with focal fatty sparing. Small intraluminal findings within the gallbladder either due to poorly shadowing gallstones or small sludge balls. Minimal pericholecystic fluid is seen. Gallbladder wall is minimally thickened in this area of fluid. Common bile duct at the upper limits of normal at 7 mm. Inferior vena cava is patent. Main portal vein shows normal hepatopedal flow. Impression: 1. Small intraluminal findings within the gallbladder either due to poorly shadowing gallstones or small sludge balls. Gallbladder wall shows some slight thickening with adjacent pericholecystic fluid. Early cholecystitis is possible. Common bile duct also at the upper limits of normal at 7 mm. 2. Fatty infiltration within the liver with areas of focal fatty sparing next to the gallbladder. 3. No additional abnormality is appreciated. Diagnostic code #3 This report was dictated in MDT
[2020-06-23] MEDS ORDERED: cefTRIAXone 2 GM in Sodium Chloride 0.9% 100 ML IV ONE ×2 (10:19→10:31)
[2020-06-23] MEDS ORDERED: Lactated Ringers 1,000 ML IV SCH (10:45)
[2020-06-23] MEDS ORDERED: HYDROmorphone 0.5 MG/0.5 ML Syringe IVPUSH ONE (10:48)
[2020-06-23] MEDS: fentaNYL 100 MCG/2 ML SDV IVPUSH ONE ×2 (12:28→13:18)
--- NOTE | 2020-06-23 12:58 | MR ---
MRI abdomen Technique: Various sequences were obtained axial and coronal planes at as well as an MRCP study. Findings: Very minimal fluid is seen around the liver as well as trace bilateral pleural effusions. Gallbladder is enlarged. Mild edema is noted within the gallbladder wall. Mild edema noted around the pancreas. Mild edema within the head of the pancreas is seen. Findings raise the possibility of pancreatitis. Common bile duct measures about 7 mm in size. No filling defects are seen to indicate choledocholithiasis. Impression: 1. Slight gallbladder wall edema. 2. Small amount of fluid around the liver and spleen as well as trace pleural effusions. 3. Edema within the pancreatic head and around the pancreas raising the possibility of pancreatitis. 4. 7 mm measurement at the CBD without choledocholithiasis. Diagnostic code #3 This report was dictated in MDT
[2020-06-23] MEDS ORDERED: Ondansetron 4 MG in Sodium Chloride 0.9% 50 ML IV PRN (15:12)
--- NOTE | 2020-06-23 15:20 | PCM.HP.2 ---
H&P History of Present Illness - General Date of Service: 06/23/20 Admit Problem/Dx: Admission Diagnosis/Problem Admission Diagnosis/Problem Pancreatitis due to biliary obstruction Source of Information: Patient History Limitations: Reports: No Limitations - History of Present Illness Other HPI/Comments: Mrs. Reid is a 39 yo woman who presents with abdominal pain. This began suddenly during sleep two nights ago. The pain started in the epigastrium and shifted over to the right side with time. She has never had such pain. At first it was mild and she thought it was gas. She had some temporary resolution of symptoms, but felt nauseated and vomited multiple times Tuesday and last night her pain got progressively worse. She denies fever. In the ER, WBC is 12,200, with total bilirubin > 4 mg/dL and lipase > 10,000. Ultrasound shows findings of sludge with mild gallbladder wall thickening and trace pericholecystic fluid, with common duct measured at 7 mm. Gi in [place] was contacted regarding transfer for evidence of choledocholithiasis/ gallstone pancreatitis. An MRCP was performed here showing findings of pancreatitis and common bile duct dilation at 7 mm with no evidence of choledocholithiasis. The patient is in no acute distress, with normal vital signs. Right Upper Abdomen Pain Score (Numeric/FACES): 9 - Related Data Allergies/Adverse Reactions: Allergies Allergy/AdvReac Type Severity Reaction Status Date / Time No Known Allergies Allergy Verified 06/23/20 07:54 Home Medications: Home Meds Citalopram [Citalopram HBr] 20 mg PO DAILY 02/27/20 [History] Levothyroxine Sodium [Levoxyl] 125 mcg PO DAILY 02/27/20 [History] Pnv No.95/Ferrous Fum/Folic AC [ Tablet] 1 tab PO DAILY 02/27/20 [History] Acetaminophen [Tylenol] 650 mg PO Q4H PRN tablet 02/28/20 [Rx] Ibuprofen [Motrin] 600 mg PO Q4H PRN tablet 02/28/20 [Rx] Past Medical History HEENT History: Reports: Impaired Vision [employer] History: Reports: , Other (See Below) Other OB/BYN History: synechial band Psychiatric History: Reports: Anxiety Endocrine/Metabolic History: Reports: Diabetes, Gestational, Hypothyroidism, Other (See Below) Other Endocrine/Metabolic History: Thyroid removed 2006 Immunologic History: Reports: None - Past Surgical History Endocrine Surgical History: Reports: Thyroidectomy Social & Family History - Family History Family Medical History: Noncontributory - Tobacco Use Smoking Status *Q: Never Smoker - Caffeine Use Caffeine Use: Reports: Coffee - Recreational Drug Use Recreational Drug Use: No H&P Review of Systems - Review of Systems: Review Of Systems: See Below General: Reports: Decreased Appetite HEENT: Reports: No Symptoms Pulmonary: Reports: No Symptoms Cardiovascular: Reports: No Symptoms Gastrointestinal: Reports: Abdominal Pain, Anorexia, Nausea, Vomiting Genitourinary: Reports: No Symptoms Musculoskeletal: Reports: No Symptoms Skin: Reports: No Symptoms Psychiatric: Reports: No Symptoms Neurological: Reports: No Symptoms Hematologic/Lymphatic: Reports: No Symptoms Immunologic: Reports: No Symptoms Exam - Exam Exam: See Below - Vital Signs Vital Signs: Last Vital Signs Temp 36.9 C 06/23/20 07:44 Pulse 64 06/23/20 07:44 Resp 14 06/23/20 07:44 BP 122/66 06/23/20 07:44 Pulse Ox 99 06/23/20 07:44 Weight: 77.467 kg - Exam Quality Assessment: Supplemental Oxygen General: Alert, Oriented, Cooperative HEENT: Scleral Icterus (mild) Neck: Supple Lungs: Normal Respiratory Effort Cardiovascular: Regular Rate GI/Abdominal Exam: Tender Skin: Warm, Dry Neuro Extensive - Mental Status: Alert, Oriented x3, Normal Mood/Affect - Patient Data Lab Results Last 24 hrs: Laboratory Results - last 24 hr 06/23/20 06/23/20 06/23/20 Range/Units 08:55 08:55 08:55 WBC 12.24 H (3.98-10.04) K/mm3 RBC 4.63 (3.98-5.22) M/mm3 Hgb 13.4 D (11.2-15.7) gm/dl Hct 41.6 (34.1-44.9) % MCV 89.8 (79.4-94.8) fl MCH 28.9 (25.6-32.2) pg MCHC 32.2 (32.2-35.5) g/dl RDW Std Deviation 44.8 (36.4-46.3) fL Plt Count 200 (182-369) K/mm3 MPV 11.2 (9.4-12.3) fl Neut % (Auto) 85.3 H (34.0-71.1) % Lymph % (Auto) 6.5 L (19.3-51.7) % [place] % (Auto) 7.8 (4.7-12.5) % Eos % (Auto) 0.1 L (0.7-5.8) Baso % (Auto) 0.1 (0.1-1.2) % Neut # (Auto) 10.44 H (1.56-6.13) K/mm3 Lymph # (Auto) 0.80 L (1.18-3.74) K/mm3 [place] # (Auto) 0.95 H (0.24-0.36) K/mm3 Eos # (Auto) 0.01 L (0.04-0.36) K/mm3 Baso # (Auto) 0.01 (0.01-0.08) K/mm3 Manual Slide Review Abnormal smear Sodium 137 (136-145) mEq/L Potassium 3.8 (3.5-5.1) mEq/L Chloride 101 (98-107) mEq/L Carbon Dioxide 28 (21-32) mEq/L Anion Gap 11.8 (5-15) BUN 14 (7-18) mg/dL Creatinine 0.8 (0.55-1.02) mg/dL Est Cr Clr Drug Dosing 87.51 mL/min Estimated GFR (MDRD) > 60 (>60) mL/min BUN/Creatinine Ratio 17.5 (14-18) Glucose 148 H (74-106) mg/dL Calcium 8.7 (8.5-10.1) mg/dL Total Bilirubin 4.1 H (0.2-1.0) mg/dL AST 445 H (15-37) U/L ALT 573 H (14-59) U/L Alkaline Phosphatase 152 H (46-116) U/L Total Protein 8.0 (6.4-8.2) g/dl Albumin 4.0 (3.4-5.0) g/dl Globulin 4.0 gm/dL Albumin/Globulin Ratio 1.0 (1-2) Lipase 63164 H (73-393) U/L HCG, Qual Negative (NEGATIVE) Urine Color (Yellow) Urine Appearance (Clear) Urine pH (5.0-8.0) Ur Specific [place] (1.005-1.030) Urine Protein (Negative) Urine Glucose (UA) (Negative) Urine Ketones (Negative) Urine Occult Blood (Negative) Urine Nitrite (Negative) Urine Bilirubin (Negative) Urine Urobilinogen (0.2-1.0) Ur Leukocyte Esterase (Negative) Urine RBC (0-5) /hpf Urine WBC (0-5) /hpf Ur Squamous Epith Cells (0-5) /hpf Amorphous Sediment (NOT SEEN) /hpf Urine Bacteria (FEW) /hpf Urine Mucus (FEW) /hpf 06/23/20 Range/Units 10:45 WBC (3.98-10.04) K/mm3 RBC (3.98-5.22) M/mm3 Hgb (11.2-15.7) gm/dl Hct (34.1-44.9) % MCV (79.4-94.8) fl MCH (25.6-32.2) pg MCHC (32.2-35.5) g/dl RDW Std Deviation (36.4-46.3) fL Plt Count (182-369) K/mm3 MPV (9.4-12.3) fl Neut % (Auto) (34.0-71.1) % Lymph % (Auto) (19.3-51.7) % [place] % (Auto) (4.7-12.5) % Eos % (Auto) (0.7-5.8) Baso % (Auto) (0.1-1.2) % Neut # (Auto) (1.56-6.13) K/mm3 Lymph # (Auto) (1.18-3.74) K/mm3 [place] # (Auto) (0.24-0.36) K/mm3 Eos # (Auto) (0.04-0.36) K/mm3 Baso # (Auto) (0.01-0.08) K/mm3 Manual Slide Review Sodium (136-145) mEq/L Potassium (3.5-5.1) mEq/L Chloride (98-107) mEq/L Carbon Dioxide (21-32) mEq/L Anion Gap (5-15) BUN (7-18) mg/dL Creatinine (0.55-1.02) mg/dL Est Cr Clr Drug Dosing mL/min Estimated GFR (MDRD) (>60) mL/min BUN/Creatinine Ratio (14-18) Glucose (74-106) mg/dL Calcium (8.5-10.1) mg/dL Total Bilirubin (0.2-1.0) mg/dL AST (15-37) U/L ALT (14-59) U/L Alkaline Phosphatase (46-116) U/L Total Protein (6.4-8.2) g/dl Albumin (3.4-5.0) g/dl Globulin gm/dL Albumin/Globulin Ratio (1-2) Lipase (73-393) U/L HCG, Qual (NEGATIVE) Urine Color [place] H (Yellow) Urine Appearance Clear (Clear) Urine pH 6.5 (5.0-8.0) Ur Specific [place] 1.025 (1.005-1.030) Urine Protein 1+ H (Negative) Urine Glucose (UA) Negative (Negative) Urine Ketones 2+ H (Negative) Urine Occult Blood Negative (Negative) Urine Nitrite Negative (Negative) Urine Bilirubin 3+ H (Negative) Urine Urobilinogen 4.0 H (0.2-1.0) Ur Leukocyte Esterase Negative (Negative) Urine RBC 0-5 (0-5) /hpf Urine WBC 0-5 (0-5) /hpf Ur Squamous Epith Cells 5-10 H (0-5) /hpf Amorphous Sediment Moderate H (NOT SEEN) /hpf Urine Bacteria Few (FEW) /hpf Urine Mucus Many H (FEW) /hpf Result Diagrams: 06/23/20 08:55 06/23/20 08:55 Sepsis Event Note - Evaluation Sepsis Screening Result: No Definite Risk - Focused Exam Vital Signs: Vital Signs Temp Pulse Resp BP Pulse Ox 06/23/20 07:44 36.9 C 64 14 122/66 99 Problem List Initiated/Reviewed/Updated: Yes Orders Last 24hrs: Active Orders 24 hr Category Date Time Status Patient Status [ADT] Routine ADT 06/23/20 15:09 Ordered Activity as Tolerated [RC] .Routine Care 06/23/20 15:09 Ordered Antiembolic Devices [RC] PER UNIT ROUTINE Care 06/23/20 15:09 Ordered Oxygen Therapy [RC] PRN Care 06/23/20 15:09 Ordered Peripheral IV Care [RC] . DIRECTED Care 06/23/20 08:08 Active RT Incentive Spirometry [RC] Q1HWA Care 06/23/20 15:09 Ordered Vital Signs [RC] Q4HR Care 06/23/20 15:09 Ordered Clear Liquid Diet [DIET] Diet 06/23/20 Breakfast Ordered BILIRUBIN DIRECT [CHEM] Routine Lab 06/24/20 05:00 Ordered CBC WITH AUTO DIFF [HEME] AM Lab 06/24/20 05:11 Ordered CMP [COMPREHENSIVE METABOLIC PN,CMP] [CHEM] Routine Lab 06/24/20 05:00 Ordered CORONAVIRUS COVID-19 RAPID [MOLEC] Stat Lab 06/23/20 14:53 Ordered Lactated Ringers [Ringers, Lactated] 1,000 ml Med 06/23/20 10:45 Active IV ASDIRECTED Lactated Ringers [Ringers, Lactated] 1,000 ml Med 06/23/20 15:15 Ordered IV ASDIRECTED Ondansetron [Zofran] 4 mg Med 06/23/20 15:12 Ordered Sodium Chloride 0.9% [Normal Saline] 50 ml IV Q6H Sodium Chloride 0.9% [Saline Flush] Med 06/23/20 08:08 Active 10 ml FLUSH ASDIRECTED PRN fentaNYL [Sublimaze] Med 06/23/20 15:11 Ordered 50 mcg IVPUSH Q4H PRN ED Antiemetic Medication Reflex [OM.PC] Stat Oth 06/23/20 08:08 Ordered Peripheral IV Insertion Adult [OM.PC] Stat Oth 06/23/20 08:08 Ordered Sequential Compression Device [OM.PC] Routine Oth 06/23/20 15:09 Ordered Resuscitation Status Routine Resus Stat 06/23/20 15:08 Ordered Medication Orders Fentanyl (Sublimaze) 50 mcg IVPUSH Q4H PRN PRN Reason: Abdominal Pain Lactated Ringer's (Ringers, Lactated) 1,000 mls @ 100 mls/hr IV ASDIRECTED REJI Last Admin: 06/23/20 11:22 Dose: 100 mls/hr Documented by: ALBA Lactated Ringer's (Ringers, Lactated) 1,000 mls @ 150 mls/hr IV ASDIRECTED REJI Ondansetron HCl 4 mg/ Sodium (Chloride) 52 mls @ 100 mls/hr IV Q6H PRN PRN Reason: Nausea Sodium Chloride (Saline Flush) 10 ml FLUSH ASDIRECTED PRN PRN Reason: Keep Vein Open Last Admin: 06/23/20 08:52 Dose: 10 ml Documented by: LEE Assessment/Plan Comment:: Apparent gallstone pancreatitis, with likely passed gallstone. Pancreatitis is mild. Plan to admit for fluid resuscitation, monitoring, pain control. Clear liquid diet for now. Repeat labs in AM. If bilirubin is increasing, plan to arrange transfer for ERCP in [place]. If labs are better and patient is improved, plan to advance diet as tolerated. Will need cholecystectomy sometime within the next few weeks following discharge and resolution of pancreatitis. - Mortality Measure Prognosis:: Good
[2020-06-23] MEDS: Ondansetron 4 MG/2 ML SDV IV PRN (15:36)
[2020-06-23] MEDS: fentaNYL 100 MCG/2 ML SDV IVPUSH PRN ×2 (15:39→20:35)
[2020-06-23] MEDS: Lactated Ringers 1,000 ML IV SCH (20:37)
[2020-06-24] MEDS: fentaNYL 100 MCG/2 ML SDV IVPUSH PRN ×3 (00:44→19:29)
[2020-06-24] MEDS: Lactated Ringers 1,000 ML IV SCH ×3 (03:07→15:21)
[2020-06-24] MEDS: Levothyroxine 88 MCG Tab PO SCH (08:32)
[2020-06-24] MEDS: Ketorolac 15 MG/ML SDV IVPUSH SCH ×3 (08:32→19:57)
[2020-06-24] MEDS: Pantoprazole 40 MG Vial IV SCH (08:32)
[2020-06-24] MEDS ORDERED: Pantoprazole 40 MG in Sodium Chloride 0.9% 100 ML IV SCH (09:00)
--- NOTE | 2020-06-24 14:12 | PCM.SN.2 ---
- Free Text/Narrative Note: Hospital Day 2, admitted with mild gallstone pancreatitis. S: feeling poorly. Nausea is controlled but pain is an issue. Keeping water down. O: AF-VSS WBC essentially unchanged; bilirubin down from 4 to just over 2; mostly indirect. Abdomen is soft, with epigastric tenderness A: Still feeling unwell, will continue pain management and monitoring as pancreatitis resolves. P: continue current therapies, will plan for laparoscopic cholecystectomy when pancreatitis is resolved. Repeat CBC in AM.
[2020-06-24] MEDS ORDERED: Sodium Chloride 0.9% 1,000 ML IV ONE (19:20)
[2020-06-24] MEDS: Citalopram 20 MG Tab PO SCH (20:01)
[2020-06-24] MEDS ORDERED: Potassium Chloride 20 MEQ Tab.ER PO ONE (21:04)
[2020-06-25] MEDS: Ketorolac 15 MG/ML SDV IVPUSH SCH ×2 (01:10→07:53)
[2020-06-25] MEDS: Lactated Ringers 1,000 ML IV SCH (07:52)
[2020-06-25] MEDS: Pantoprazole 40 MG Vial IV SCH (07:59)
[2020-06-25] MEDS: Levothyroxine 88 MCG Tab PO SCH (08:00)
--- NOTE | 2020-06-25 08:58 | PCM.SN.2 ---
- Free Text/Narrative Note: Hospital Day 3, mild gallstone pancreatitis S: fever with chills and malaise last night. No vomiting. Tolerating clears. Overall, pain improving. O: Tm 39.3 last night. Labs repeated and blood cultures drawn, 1 L bolus crystalloid administered. WBC, bilirubin improved from prior. No distress this AM epigastric tenderness no increased work of breathing A: gallstone pancreatitis, mild, seems to be resolving, though with one episode of fever last night. No information from blood cultures as of now. P: Reduce IVF to maintenance at 75 cc/hr, advance diet to regular. Monitor for fever. No plan to recheck labs unless clinical picture worsens. Discussed cholecystectomy prior to discharge if she is feeling better tomorrow.
[2020-06-25] MEDS: D5 1/2 NS w/ 20 mEq/L KCl 1,000 ML IV SCH (09:46)
[2020-06-25] MEDS: fentaNYL 100 MCG/2 ML SDV IVPUSH PRN ×2 (12:25→16:34)
[2020-06-25] MEDS: oxyCODONE 5 MG Tab PO PRN (14:07)
[2020-06-25] MEDS: Ibuprofen 800 MG Tab PO SCH (16:40)
--- NOTE | 2020-06-25 18:47 | PCM.PREANE ---
Preanesthetic Assessment - Procedure Proposed Procedure: Laparoscopic Cholecystectomy - Anesthesia/Transfusion/Family Hx Anesthesia History: Prior Anesthesia Without Reaction Family History of Anesthesia Reaction: No Transfusion History: No Prior Transfusion(s) Intubation History: Unknown - Review of Systems Gastrointestinal: No Symptoms (Post 4 months: HCG negative), Abdominal Pain (Gall stone pancreatitis) Other: Reports: Liver Problems (Elevated liver enzymes and fatty liver noted.), Thyroid Problems (hypothyroid), Anxiety - Physical Assessment NPO Status Date: 06/26/20 NPO Status Time: 00:01 Vital Signs: Last Vital Signs Temp 38.2 C H 06/25/20 15:56 Pulse 87 06/25/20 15:56 Resp 18 06/25/20 15:56 BP 114/51 L 06/25/20 15:56 Pulse Ox 98 06/25/20 15:56 Height: 1.68 m Weight: 82.735 kg ASA Class: 2 Mental Status: Alert & Oriented x3 - Lab Values: Laboratory Last Values WBC 10.36 K/mm3 (3.98-10.04) H 06/25/20 04:55 RBC 3.87 M/mm3 (3.98-5.22) L 06/25/20 04:55 Hgb 10.9 gm/dl (11.2-15.7) L 06/25/20 04:55 Hct 35.7 % (34.1-44.9) 06/25/20 04:55 MCV 92.2 fl (79.4-94.8) 06/25/20 04:55 MCH 28.2 pg (25.6-32.2) 06/25/20 04:55 MCHC 30.5 g/dl (32.2-35.5) L 06/25/20 04:55 RDW Std Deviation 44.9 fL (36.4-46.3) 06/25/20 04:55 Plt Count 149 K/mm3 (182-369) L 06/25/20 04:55 MPV 11.3 fl (9.4-12.3) 06/25/20 04:55 Neut % (Auto) 72.7 % (34.0-71.1) H 06/25/20 04:55 Lymph % (Auto) 15.7 % (19.3-51.7) L 06/25/20 04:55 [place] % (Auto) 8.1 % (4.7-12.5) 06/25/20 04:55 Eos % (Auto) 2.6 (0.7-5.8) 06/25/20 04:55 Baso % (Auto) 0.2 % (0.1-1.2) 06/25/20 04:55 Neut # (Auto) 7.53 K/mm3 (1.56-6.13) H 06/25/20 04:55 Lymph # (Auto) 1.63 K/mm3 (1.18-3.74) 06/25/20 04:55 [place] # (Auto) 0.84 K/mm3 (0.24-0.36) H 06/25/20 04:55 Eos # (Auto) 0.27 K/mm3 (0.04-0.36) 06/25/20 04:55 Baso # (Auto) 0.02 K/mm3 (0.01-0.08) 06/25/20 04:55 Manual Slide Review Abnormal smear 06/23/20 08:55 Sodium 136 mEq/L (136-145) 06/24/20 19:35 Potassium 3.4 mEq/L (3.5-5.1) L 06/24/20 19:35 Chloride 101 mEq/L (98-107) 06/24/20 19:35 Carbon Dioxide 25 mEq/L (21-32) 06/24/20 19:35 Anion Gap 13.4 (5-15) 06/24/20 19:35 BUN 5 mg/dL (7-18) L 06/24/20 19:35 Creatinine 0.6 mg/dL (0.55-1.02) 06/24/20 19:35 Est Cr Clr Drug Dosing 116.68 mL/min 06/24/20 19:35 Estimated GFR (MDRD) > 60 mL/min (>60) 06/24/20 19:35 BUN/Creatinine Ratio 8.3 (14-18) L 06/24/20 19:35 Glucose 117 mg/dL (74-106) H 06/24/20 19:35 Calcium 7.5 mg/dL (8.5-10.1) L 06/24/20 19:35 Total Bilirubin 1.7 mg/dL (0.2-1.0) H 06/24/20 19:35 Direct Bilirubin 0.80 mg/dl (0.0-0.2) H 06/24/20 04:58 AST 109 U/L (15-37) H 06/24/20 19:35 ALT 398 U/L (14-59) H 06/24/20 19:35 Alkaline Phosphatase 117 U/L (46-116) H 06/24/20 19:35 Total Protein 6.2 g/dl (6.4-8.2) L 06/24/20 19:35 Albumin 2.9 g/dl (3.4-5.0) L 06/24/20 19:35 Globulin 3.3 gm/dL 06/24/20 19:35 Albumin/Globulin Ratio 0.9 (1-2) L 06/24/20 19:35 Lipase 89016 U/L (73-393) H 06/23/20 08:55 HCG, Qual Negative (NEGATIVE) 06/23/20 08:55 Urine Color [place] (Yellow) H 06/23/20 10:45 Urine Appearance Clear (Clear) 06/23/20 10:45 Urine pH 6.5 (5.0-8.0) 06/23/20 10:45 Ur Specific [place] 1.025 (1.005-1.030) 06/23/20 10:45 Urine Protein 1+ (Negative) H 06/23/20 10:45 Urine Glucose (UA) Negative (Negative) 06/23/20 10:45 Urine Ketones 2+ (Negative) H 06/23/20 10:45 Urine Occult Blood Negative (Negative) 06/23/20 10:45 Urine Nitrite Negative (Negative) 06/23/20 10:45 Urine Bilirubin 3+ (Negative) H 06/23/20 10:45 Urine Urobilinogen 4.0 (0.2-1.0) H 06/23/20 10:45 Ur Leukocyte Esterase Negative (Negative) 06/23/20 10:45 Urine RBC 0-5 /hpf (0-5) 06/23/20 10:45 Urine WBC 0-5 /hpf (0-5) 06/23/20 10:45 Ur Squamous Epith Cells 5-10 /hpf (0-5) H 06/23/20 10:45 Amorphous Sediment Moderate /hpf (NOT SEEN) H 06/23/20 10:45 Urine Bacteria Few /hpf (FEW) 06/23/20 10:45 Urine Mucus Many /hpf (FEW) H 06/23/20 10:45 COVID-19 (SHALINI) Negative (NEGATIVE) 06/23/20 15:10 Above labs reviewed and noted and within acceptable ranges to proceed with scheduled procedure. - Allergies Allergies/Adverse Reactions: Allergies Allergy/AdvReac Type Severity Reaction Status Date / Time No Known Allergies Allergy Verified 06/23/20 17:22 - Anesthesia Plan Pre-Op Medication Ordered: None - Acknowledgements Anesthesia Type Planned: General Anesthesia Pt an Appropriate Candidate for the Planned Anesthesia: Yes Alternatives and Risks of Anesthesia Discussed w Pt/Guardian: Yes Pt/Guardian Understands and Agrees with Anesthesia Plan: Yes PreAnesthesia Questionnaire HEENT History: Reports: Impaired Vision [employer] WE[employer] P[employer]ER History: Reports: , Other (See Below) Other OB/BYN History: synechial band Psychiatric History: Reports: Anxiety Endocrine/Metabolic History: Reports: Diabetes, Gestational, Hypothyroidism, Other (See Below) Other Endocrine/Metabolic History: Thyroid removed 2006 Immunologic History: Reports: None Dermatologic History: Reports: Other (See Below) Other Dermatologic History: moles removed - Past Surgical History Endocrine Surgical History: Reports: Thyroidectomy - SUBSTANCE USE Smoking Status *Q: Never Smoker Tobacco Use Within Last Twelve Months: No Recreational Drug Use History: No - HOME MEDS Home Medications: Home Meds Citalopram [Citalopram HBr] 20 mg PO BEDTIME 02/27/20 [History] Levothyroxine Sodium [Levoxyl] 88 mcg PO DAILY 02/27/20 [History] Pnv No.95/Ferrous Fum/Folic AC [ Tablet] 1 tab PO DAILY 02/27/20 [History] Acetaminophen [Tylenol] 650 mg PO Q4H PRN tablet 02/28/20 [Rx] Ibuprofen [Motrin] 400 mg PO Q4H PRN 06/23/20 [History] - CURRENT (IN HOUSE) MEDS Current Meds: Current Medications Citalopram Hydrobromide (Celexa) 20 mg PO BEDTIME REJI Last Admin: 06/24/20 20:01 Dose: 20 mg Documented by: Fentanyl (Sublimaze) 50 mcg IVPUSH Q4H PRN PRN Reason: Abdominal Pain Last Admin: 06/25/20 16:34 Dose: 50 mcg Documented by: Potassium Chloride/Dextrose/Sod Cl (D5 1/2 Ns W/ 20 Meq/L Kcl) 1,000 mls @ 75 mls/hr IV ASDIRECTED [facility] Last Admin: 06/25/20 09:46 Dose: 75 mls/hr Documented by: Ibuprofen (Motrin) 800 mg PO Q8H [facility] Last Admin: 06/25/20 16:40 Dose: 800 mg Documented by: Levothyroxine Sodium (Synthroid) 88 mcg PO DAILY [facility] Last Admin: 06/25/20 08:00 Dose: 88 mcg Documented by: Ondansetron HCl (Zofran) 4 mg IV Q6H PRN PRN Reason: Nausea Last Admin: 06/23/20 15:36 Dose: 4 mg Documented by: Oxycodone HCl (Oxycodone) 5 mg PO Q4H PRN PRN Reason: Pain (moderate 4-6) Last Admin: 06/25/20 14:07 Dose: 5 mg Documented by: Pantoprazole Sodium (Protonix Iv) 40 mg IV Q24H [facility] Last Admin: 06/25/20 07:59 Dose: 40 mg Documented by: Sodium Chloride (Saline Flush) 10 ml FLUSH ASDIRECTED PRN PRN Reason: Keep Vein Open Last Admin: 06/23/20 08:52 Dose: 10 ml Documented by: Discontinued Medications Fentanyl (Sublimaze) 100 mcg IVPUSH ONETIME ONE Stop: 06/23/20 12:18 Last Admin: 06/23/20 13:18 Dose: 50 mcg Documented by: Hydromorphone HCl (Dilaudid) 1 mg IVPUSH ONETIME ONE Stop: 06/23/20 08:10 Last Admin: 06/23/20 08:51 Dose: 1 mg Documented by: Hydromorphone HCl (Dilaudid) 0.5 mg IVPUSH ONETIME ONE Stop: 06/23/20 10:49 Last Admin: 06/23/20 10:56 Dose: 0.5 mg Documented by: Sodium Chloride (Normal Saline) 1,000 mls @ 1,000 mls/hr IV .BOLUS STA Stop: 06/23/20 09:07 Last Admin: 06/23/20 08:51 Dose: 1,000 mls/hr Documented by: Ceftriaxone Sodium 2 gm/ (Sodium Chloride) 100 mls @ 200 mls/hr IV ONETIME ONE Stop: 06/23/20 11:00 Last Admin: 06/23/20 10:42 Dose: 200 mls/hr Documented by: Lactated Ringer's (Ringers, Lactated) 1,000 mls @ 100 mls/hr IV ASDIRECTED [facility] Last Admin: 06/23/20 11:22 Dose: 100 mls/hr Documented by: Lactated Ringer's (Ringers, Lactated) 1,000 mls @ 150 mls/hr IV ASDIRECTED [facility] Last Admin: 06/25/20 07:52 Dose: 150 mls/hr Documented by: Ondansetron HCl 4 mg/ Sodium (Chloride) 52 mls @ 100 mls/hr IV Q6H PRN PRN Reason: Nausea Pantoprazole Sodium 40 mg/ (Sodium Chloride) 100 mls @ 200 mls/hr IV DAILY [facility] Sodium Chloride (Normal Saline) 1,000 mls @ 999 drops/hr IV ONETIME ONE Stop: 06/25/20 10:20 Last Admin: 06/24/20 19:54 Dose: 999 drops/hr Documented by: Ketorolac Tromethamine (Toradol) 15 mg IVPUSH Q6H [facility] Stop: 06/25/20 08:00 Last Admin: 06/25/20 07:53 Dose: 15 mg Documented by: Ondansetron HCl (Zofran) 4 mg IVPUSH ONETIME ONE Stop: 06/23/20 08:09 Last Admin: 06/23/20 08:51 Dose: 4 mg Documented by: Ondansetron HCl (Zofran) 4 mg IVPUSH ONETIME ONE Stop: 06/23/20 11:41 Last Admin: 06/23/20 11:47 Dose: 4 mg Documented by: Potassium Chloride (Klor-Con M20) 20 meq PO ONETIME ONE Stop: 06/24/20 21:05 Last Admin: 06/24/20 22:07 Dose: 20 meq Documented by:
[2020-06-25] MEDS: Citalopram 20 MG Tab PO SCH (21:09)
[2020-06-26] MEDS: D5 1/2 NS w/ 20 mEq/L KCl 1,000 ML IV SCH ×2 (00:01→16:09)
[2020-06-26] MEDS: Ibuprofen 800 MG Tab PO SCH ×3 (00:01→16:05)
[2020-06-26] MEDS ORDERED: Bupivacaine 0.5% 30 ML SDV ONE (08:06)
[2020-06-26] MEDS: Levothyroxine 88 MCG Tab PO SCH (08:22)
[2020-06-26] MEDS: Pantoprazole 40 MG Vial IV SCH (08:23)
--- NOTE | 2020-06-26 10:15 | PCM.PREANE ---
Preanesthetic Assessment - Anesthesia/Transfusion/Family Hx Anesthesia History: Prior Anesthesia Without Reaction Family History of Anesthesia Reaction: No Transfusion History: No Prior Transfusion(s) Intubation History: Unknown - Review of Systems General: No Symptoms, Fatigue Pulmonary: No Symptoms (ETOH: rarely) Cardiovascular: No Symptoms, Palpitations (anxiety) Gastrointestinal: No Symptoms, Abdominal Pain (2/10), Decreased Appetite Neurological: No Symptoms Other: Reports: Liver Problems (Elevated liver enzymes and fatty liver noted.), Thyroid Problems (hypothyroid/history of thyroidectomy), Anxiety - Physical Assessment NPO Status Date: 06/26/20 NPO Status Time: 00:01 Vital Signs: Last Vital Signs Temp 36.7 C 06/26/20 03:57 Pulse 70 06/26/20 03:57 Resp 12 06/26/20 03:57 BP 102/55 L 06/26/20 03:57 Pulse Ox 98 06/26/20 03:57 Height: 1.68 m Weight: 83.053 kg ASA Class: 2 Mental Status: Alert & Oriented x3 Airway Class: Mallampati = 2 Dentition: Reports: Normal Dentition, Caries Thyro-Mental Finger Breadths: 3 Mouth Opening Finger Breadths: 3 ROM/Head Extension: Full Lungs: Clear to Auscultation, Normal Respiratory Effort Cardiovascular: Regular Rate, Regular Rhythm, No Murmurs - Lab Values: Laboratory Last Values WBC 10.36 K/mm3 (3.98-10.04) H 06/25/20 04:55 RBC 3.87 M/mm3 (3.98-5.22) L 06/25/20 04:55 Hgb 10.9 gm/dl (11.2-15.7) L 06/25/20 04:55 Hct 35.7 % (34.1-44.9) 06/25/20 04:55 MCV 92.2 fl (79.4-94.8) 06/25/20 04:55 MCH 28.2 pg (25.6-32.2) 06/25/20 04:55 MCHC 30.5 g/dl (32.2-35.5) L 06/25/20 04:55 RDW Std Deviation 44.9 fL (36.4-46.3) 06/25/20 04:55 Plt Count 149 K/mm3 (182-369) L 06/25/20 04:55 MPV 11.3 fl (9.4-12.3) 06/25/20 04:55 Neut % (Auto) 72.7 % (34.0-71.1) H 06/25/20 04:55 Lymph % (Auto) 15.7 % (19.3-51.7) L 06/25/20 04:55 [place] % (Auto) 8.1 % (4.7-12.5) 06/25/20 04:55 Eos % (Auto) 2.6 (0.7-5.8) 06/25/20 04:55 Baso % (Auto) 0.2 % (0.1-1.2) 06/25/20 04:55 Neut # (Auto) 7.53 K/mm3 (1.56-6.13) H 06/25/20 04:55 Lymph # (Auto) 1.63 K/mm3 (1.18-3.74) 06/25/20 04:55 [place] # (Auto) 0.84 K/mm3 (0.24-0.36) H 06/25/20 04:55 Eos # (Auto) 0.27 K/mm3 (0.04-0.36) 06/25/20 04:55 Baso # (Auto) 0.02 K/mm3 (0.01-0.08) 06/25/20 04:55 Manual Slide Review Abnormal smear 06/23/20 08:55 Sodium 136 mEq/L (136-145) 06/24/20 19:35 Potassium 3.4 mEq/L (3.5-5.1) L 06/24/20 19:35 Chloride 101 mEq/L (98-107) 06/24/20 19:35 Carbon Dioxide 25 mEq/L (21-32) 06/24/20 19:35 Anion Gap 13.4 (5-15) 06/24/20 19:35 BUN 5 mg/dL (7-18) L 06/24/20 19:35 Creatinine 0.6 mg/dL (0.55-1.02) 06/24/20 19:35 Est Cr Clr Drug Dosing 116.68 mL/min 06/24/20 19:35 Estimated GFR (MDRD) > 60 mL/min (>60) 06/24/20 19:35 BUN/Creatinine Ratio 8.3 (14-18) L 06/24/20 19:35 Glucose 117 mg/dL (74-106) H 06/24/20 19:35 Calcium 7.5 mg/dL (8.5-10.1) L 06/24/20 19:35 Total Bilirubin 1.7 mg/dL (0.2-1.0) H 06/24/20 19:35 Direct Bilirubin 0.80 mg/dl (0.0-0.2) H 06/24/20 04:58 AST 109 U/L (15-37) H 06/24/20 19:35 ALT 398 U/L (14-59) H 06/24/20 19:35 Alkaline Phosphatase 117 U/L (46-116) H 06/24/20 19:35 Total Protein 6.2 g/dl (6.4-8.2) L 06/24/20 19:35 Albumin 2.9 g/dl (3.4-5.0) L 06/24/20 19:35 Globulin 3.3 gm/dL 06/24/20 19:35 Albumin/Globulin Ratio 0.9 (1-2) L 06/24/20 19:35 Lipase 03101 U/L (73-393) H 06/23/20 08:55 HCG, Qual Negative (NEGATIVE) 06/23/20 08:55 Urine Color [place] (Yellow) H 06/23/20 10:45 Urine Appearance Clear (Clear) 06/23/20 10:45 Urine pH 6.5 (5.0-8.0) 06/23/20 10:45 Ur Specific [place] 1.025 (1.005-1.030) 06/23/20 10:45 Urine Protein 1+ (Negative) H 06/23/20 10:45 Urine Glucose (UA) Negative (Negative) 06/23/20 10:45 Urine Ketones 2+ (Negative) H 06/23/20 10:45 Urine Occult Blood Negative (Negative) 06/23/20 10:45 Urine Nitrite Negative (Negative) 06/23/20 10:45 Urine Bilirubin 3+ (Negative) H 06/23/20 10:45 Urine Urobilinogen 4.0 (0.2-1.0) H 06/23/20 10:45 Ur Leukocyte Esterase Negative (Negative) 06/23/20 10:45 Urine RBC 0-5 /hpf (0-5) 06/23/20 10:45 Urine WBC 0-5 /hpf (0-5) 06/23/20 10:45 Ur Squamous Epith Cells 5-10 /hpf (0-5) H 06/23/20 10:45 Amorphous Sediment Moderate /hpf (NOT SEEN) H 06/23/20 10:45 Urine Bacteria Few /hpf (FEW) 06/23/20 10:45 Urine Mucus Many /hpf (FEW) H 06/23/20 10:45 COVID-19 (SHALINI) Negative (NEGATIVE) 06/23/20 15:10 Blood Type AB POSITIVE 06/26/20 06:00 Gel Antibody Screen Negative 06/26/20 06:00 All labs reviewed and noted and within acceptable ranges to proceed with scheduled procedure. 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: , Other (See Below) Other OB/BYN History: synechial band Psychiatric History: Reports: Anxiety Endocrine/Metabolic History: Reports: Diabetes, Gestational, Hypothyroidism, Other (See Below) Other Endocrine/Metabolic History: Thyroid removed 2006 Immunologic History: Reports: None Dermatologic History: Reports: Other (See Below) Other Dermatologic History: moles removed - Past Surgical History Endocrine Surgical History: Reports: Thyroidectomy - SUBSTANCE USE Smoking Status *Q: Never Smoker Tobacco Use Within Last Twelve Months: No Recreational Drug Use History: No - HOME MEDS Home Medications: Home Meds Citalopram [Citalopram HBr] 20 mg PO BEDTIME 02/27/20 [History] Levothyroxine Sodium [Levoxyl] 88 mcg PO DAILY 02/27/20 [History] Pnv No.95/Ferrous Fum/Folic AC [ Tablet] 1 tab PO DAILY 02/27/20 [History] Acetaminophen [Tylenol] 650 mg PO Q4H PRN tablet 02/28/20 [Rx] Ibuprofen [Motrin] 400 mg PO Q4H PRN 06/23/20 [History] - CURRENT (IN HOUSE) MEDS Current Meds: Current Medications Citalopram Hydrobromide (Celexa) 20 mg PO BEDTIME [facility] Last Admin: 06/25/20 21:09 Dose: 20 mg Documented by: Fentanyl (Sublimaze) 50 mcg IVPUSH Q4H PRN PRN Reason: Abdominal Pain Last Admin: 06/25/20 16:34 Dose: 50 mcg Documented by: Potassium Chloride/Dextrose/Sod Cl (D5 1/2 Ns W/ 20 Meq/L Kcl) 1,000 mls @ 75 mls/hr IV ASDIRECTED [facility] Last Admin: 06/26/20 00:01 Dose: 75 mls/hr Documented by: Ibuprofen (Motrin) 800 mg PO Q8H [facility] Last Admin: 06/26/20 08:22 Dose: 800 mg Documented by: Levothyroxine Sodium (Synthroid) 88 mcg PO DAILY [facility] Last Admin: 06/26/20 08:22 Dose: 88 mcg Documented by: Ondansetron HCl (Zofran) 4 mg IV Q6H PRN PRN Reason: Nausea Last Admin: 06/23/20 15:36 Dose: 4 mg Documented by: Oxycodone HCl (Oxycodone) 5 mg PO Q4H PRN PRN Reason: Pain (moderate 4-6) Last Admin: 06/25/20 14:07 Dose: 5 mg Documented by: Pantoprazole Sodium (Protonix Iv) 40 mg IV Q24H [facility] Last Admin: 06/26/20 08:23 Dose: 40 mg Documented by: Sodium Chloride (Saline Flush) 10 ml FLUSH ASDIRECTED PRN PRN Reason: Keep Vein Open Last Admin: 06/23/20 08:52 Dose: 10 ml Documented by: Discontinued Medications Bupivacaine HCl (Marcaine 0.5%) Confirm Administered Dose 30 ml .ROUTE .STK-MED ONE Stop: 06/26/20 08:07 Fentanyl (Sublimaze) 100 mcg IVPUSH ONETIME ONE Stop: 06/23/20 12:18 Last Admin: 06/23/20 13:18 Dose: 50 mcg Documented by: Hydromorphone HCl (Dilaudid) 1 mg IVPUSH ONETIME ONE Stop: 06/23/20 08:10 Last Admin: 06/23/20 08:51 Dose: 1 mg Documented by: Hydromorphone HCl (Dilaudid) 0.5 mg IVPUSH ONETIME ONE Stop: 06/23/20 10:49 Last Admin: 06/23/20 10:56 Dose: 0.5 mg Documented by: Sodium Chloride (Normal Saline) 1,000 mls @ 1,000 mls/hr IV .BOLUS STA Stop: 06/23/20 09:07 Last Admin: 06/23/20 08:51 Dose: 1,000 mls/hr Documented by: Ceftriaxone Sodium 2 gm/ (Sodium Chloride) 100 mls @ 200 mls/hr IV ONETIME ONE Stop: 06/23/20 11:00 Last Admin: 06/23/20 10:42 Dose: 200 mls/hr Documented by: Lactated Ringer's (Ringers, Lactated) 1,000 mls @ 100 mls/hr IV ASDIRECTED [facility] Last Admin: 06/23/20 11:22 Dose: 100 mls/hr Documented by: Lactated Ringer's (Ringers, Lactated) 1,000 mls @ 150 mls/hr IV ASDIRECTED [facility] Last Admin: 06/25/20 07:52 Dose: 150 mls/hr Documented by: Ondansetron HCl 4 mg/ Sodium (Chloride) 52 mls @ 100 mls/hr IV Q6H PRN PRN Reason: Nausea Pantoprazole Sodium 40 mg/ (Sodium Chloride) 100 mls @ 200 mls/hr IV DAILY [facility] Sodium Chloride (Normal Saline) 1,000 mls @ 999 drops/hr IV ONETIME ONE Stop: 06/25/20 10:20 Last Admin: 06/24/20 19:54 Dose: 999 drops/hr Documented by: Ketorolac Tromethamine (Toradol) 15 mg IVPUSH Q6H [facility] Stop: 06/25/20 08:00 Last Admin: 06/25/20 07:53 Dose: 15 mg Documented by: Ondansetron HCl (Zofran) 4 mg IVPUSH ONETIME ONE Stop: 06/23/20 08:09 Last Admin: 06/23/20 08:51 Dose: 4 mg Documented by: Ondansetron HCl (Zofran) 4 mg IVPUSH ONETIME ONE Stop: 06/23/20 11:41 Last Admin: 06/23/20 11:47 Dose: 4 mg Documented by: Potassium Chloride (Klor-Con M20) 20 meq PO ONETIME ONE Stop: 06/24/20 21:05 Last Admin: 06/24/20 22:07 Dose: 20 meq Documented by:
[2020-06-26] MEDS ORDERED: Ketorolac 30 MG/ML SDV ONE (10:49)
[2020-06-26] MEDS ORDERED: Midazolam 1 MG/ML 2 ML SDV ONE (10:49)
[2020-06-26] MEDS ORDERED: Ondansetron 4 MG/2 ML SDV ONE (10:49)
[2020-06-26] MEDS ORDERED: Propofol 200 MG/20 ML SDV ONE (10:49)
[2020-06-26] MEDS ORDERED: Dexamethasone 4 MG/ML 5 ML MDV ONE (10:49)
[2020-06-26] MEDS ORDERED: ceFAZolin 1 GM Vial ONE (10:49)
[2020-06-26] MEDS ORDERED: Lactated Ringers 1,000 ML ONE (10:49)
[2020-06-26] MEDS ORDERED: Lidocaine 1% 4 ML ONE (10:49)
[2020-06-26] MEDS ORDERED: HYDROmorphone 0.5 MG/0.5 ML Syringe ONE ×2 (10:49→14:07)
[2020-06-26] MEDS ORDERED: Rocuronium 50 MG/5 ML Vial ONE (10:49)
[2020-06-26] MEDS ORDERED: fentaNYL 250 MCG/5 ML SDV ONE (10:50)
[2020-06-26] MEDS ORDERED: ePHEDrine 50 MG/ML SDV IVPUSH PRN (13:35)
[2020-06-26] MEDS ORDERED: diphenhydrAMINE 50 MG/ML SDV IVPUSH PRN (13:35)
[2020-06-26] MEDS ORDERED: Ondansetron 4 MG/2 ML SDV IVPUSH PRN (13:35)
[2020-06-26] MEDS ORDERED: Midazolam 1 MG/ML 2 ML SDV IVPUSH PRN (13:35)
[2020-06-26] MEDS ORDERED: fentaNYL 100 MCG/2 ML SDV IVPUSH PRN (13:35)
[2020-06-26] MEDS: Bupivacaine 0.5%/EPINEPHrine 1:200,000 50 ML MDV ONE ×2 (13:36→14:06)
[2020-06-26] MEDS ORDERED: HYDROmorphone 0.5 MG/0.5 ML Syringe IVPUSH PRN (13:36)
[2020-06-26] MEDS ORDERED: Phenylephrine 1 MG in Sodium Chloride 0.9% 10 ML IV PRN (13:45)
[2020-06-26] MEDS ORDERED: fentaNYL 100 MCG/2 ML SDV ONE (14:27)
--- NOTE | 2020-06-26 15:09 | PCM.POSTAN ---
POST ANESTHESIA ASSESSMENT - MENTAL STATUS Mental Status: Alert - VITAL SIGNS Vital Signs: Last Vital Signs Temp 98.6 06/26/20 Pulse 88 06/26/20 Resp 7 06/26/20 BP 116/71 06/26/20 Pulse Ox 95 06/26/20 - RESPIRATORY Respiratory Status: Respiratory Rate WNL, Airway Patent, O2 Saturation Stable, Supplemental Oxygen - CARDIOVASCULAR CV Status: Pulse Rate WNL, Blood Pressure Stable - GASTROINTESTINAL GI Status: No Symptoms - POST OP HYDRATION Hydration Status: Adequate & Stable
--- NOTE | 2020-06-26 15:26 | PCM.PRNOTE ---
- Free Text/Narrative Note: Operative Report Date: 06/26/2020 Operation: laparoscopic cholecystectomy Surgeon: Madhu Mantilla MD Pre-op antibiotic: 2 g ancef IV DVT prophylaxis: SCDs EBL: 20 cc Local anesthetic: 20 cc 0.5% marcaine with epinephrine Findings: inflamed gallbladder with some associated hepatic necrosis. Critical view established. Detailed Report: The patient was taken to the OR and placed on the table in supine position. Time out was performed and general endotracheal anesthesia initiated. The abdomen was prepped and draped in sterile fashion. A Veress needle was inserted into the abdomen at the left subcostal site in line with the midclavicle. Pneumoperitoneum was established with CO2 and pressure set at 15 mm Hg. Air was aspirated at the umbilicus in order to ensure safe blind entry with bladed 5 mm trocar. The trocar was placed and the 30 degree 5 mm laparoscope inserted. There was a minor injury, superficial, to the left lobe of the liver from the Veress needle. Additional ports were placed under laparoscopic vision; two 5 mm ports at the left lateral abdomen and left upper quadrant, and a 12 mm subxiphoid port. The gallbladder looked inflamed and tense. A laparoscopic hollow needle was used to decompress the gallbladder at the fundus, and 30 cc of thin bilious fluid was aspirated. The fundus was grasped and elevated cephalad by the vet assistant. Adhesions were taken down from the lateral aspect of the gallbladder to expose the infundibulum. With lateral traction on the infundibulum, the cystic structures were carefully skeletonized using the suction coffee grinder and hook monopolar energy. Two structures were seen going to the gallbladder, with a clear view of the liver in the background established. Hemolock clips were placed on the cystic duct; two on the stay side and one on the specimen side. Two clips were placed on the artery, and both structures were transected using laparoscopic valerie. Monopolar was then used to separate the gallbladder from the liver. There was some dense, white fibrotic tissue at the anterior aspect of the gallbladder body which appeared to be some hepatic parenchymal necrosis associated with severe cholecystitis. There felt to be a sizeable gallstone within the gallbladder. Once the gallbladder was free it was placed in an Endocatch bag and removed through the subxiphoid site. The dissection field was thoroughly irrigated and suctioned. A ray-sudhir gauze was placed into the abdomen to dry up the field; there was faint serosanguinous fluid only. Minor bleeding from the liver edge was controlled with monopolar energy. The ray-sudhir was removed, and the larger port site closed at the level of fascia with 0 vicryl using the laparoscopic suture passer. The lateral ports were removed under laparoscopic visualization. Pneumoperitoneum was released. Skin incisions were closed with 4-0 vicryl and dressed with dermabond. The patient tolerated the procedure well.
--- NOTE | 2020-06-26 15:38 | PCM.SN.2 ---
- Free Text/Narrative Note: Gallstone pancreatitis, hospital day 4 S: overall feeling better, pain improved O: AF-VSS no distress comfortable on room air mild epigastric pain A: Resolving pancreatitis from gallstone disease. P: laparoscopic cholecystectomy today. Anticipate discharge to home in the morning if doing well.
[2020-06-26] MEDS: oxyCODONE 5 MG Tab PO PRN (18:04)
[2020-06-26] MEDS: Ondansetron 4 MG/2 ML SDV IV PRN (18:05)
[2020-06-26] MEDS: Citalopram 20 MG Tab PO SCH (20:12)
[2020-06-27] MEDS: Ibuprofen 800 MG Tab PO SCH ×2 (00:34→09:41)
[2020-06-27] MEDS: oxyCODONE 5 MG Tab PO PRN (05:18)
--- NOTE | 2020-06-27 08:37 | PCM48HPAN ---
Post Anesthesia Note - EVALUATION WITHIN 48HRS OF ANESTHETIC Vital Signs in Normal Range: Yes Patient Participated in Evaluation: Yes Respiratory Function Stable: Yes Airway Patent: Yes Cardiovascular Function Stable: Yes Hydration Status Stable: Yes Pain Control Satisfactory: Yes Nausea and Vomiting Control Satisfactory: Yes Mental Status Recovered: Yes Vital Signs: Last Vital Signs Temp 37.0 C 06/27/20 05:12 Pulse 57 L 06/27/20 05:12 Resp 14 06/27/20 05:12 BP 113/56 L 06/27/20 05:12 Pulse Ox 99 06/27/20 05:12 - COMMENTS/OBSERVATIONS Free Text/Narrative:: no anesthesia complications noted
--- NOTE | 2020-06-27 08:51 | PCM.DCSUM1 ---
Discharge Summary - Hospital Course Free Text/Narrative:: Admitted 06/23 with findings of mild gallstone pancreatitis. MRCP showed no choledocholithiasis. Managed with IV fluids and pain medication. WBC trended to normal. Patient still had some issues with fever, pain, nausea, though bilirubin also returned to normal range. Taken to OR 06/26 for laparoscopic cholecystectomy, which was uncomplicated. The patient stayed overnight for observation and pain control and did well, feeling much better in the morning. Deemed fit for discharge to home on post-op day 1. Diagnosis: Stroke: No - Discharge Data Discharge Date: 06/27/20 Discharge Disposition: Home, Self-Care 01 Condition: Good - Referral to Home Health Primary Care Physician: Emelia Gandara NP - Patient Summary/Data Operative Procedure(s) Performed: laparoscopic cholecystectomy - Patient Instructions Diet: Usual Diet as Tolerated Activity: No Lifting Over 10 Pounds Showering/Bathing: February Shower Wound/Incision Care: Keep Operative Site/Wound Site Clean and Dry Notify Provider of: Fever, Increased Pain, Swelling and Redness - Discharge Plan *PRESCRIPTION DRUG MONITORING PROGRAM REVIEWED*: Not Applicable *COPY OF PRESCRIPTION DRUG MONITORING REPORT IN PATIENT FAUSTO: Not Applicable Prescriptions/Med Rec: oxyCODONE 5 mg PO Q4H PRN #15 tab PRN Reason: Pain Home Medications: Home Meds Citalopram [Citalopram HBr] 20 mg PO BEDTIME 02/27/20 [History] Levothyroxine Sodium [Levoxyl] 88 mcg PO DAILY 02/27/20 [History] Pnv No.95/Ferrous Fum/Folic AC [ Tablet] 1 tab PO DAILY 02/27/20 [History] Acetaminophen [Tylenol] 650 mg PO Q4H PRN tablet 02/28/20 [Rx] Ibuprofen [Motrin] 400 mg PO Q4H PRN 06/23/20 [History] oxyCODONE 5 mg PO Q4H PRN #15 tab 06/27/20 [Rx] Oxygen Therapy Mode: Room Air Patient Handouts: Laparoscopic Cholecystectomy, Care After, Acute Pancreatitis, [id number], Pancreatitis Eating Plan, Gallbladder Eating Plan - Discharge Summary/Plan Comment DC Time >30 min.: No - Patient Data Vitals - Most Recent: Last Vital Signs Temp 37.0 C 06/27/20 05:12 Pulse 57 L 06/27/20 05:12 Resp 14 06/27/20 05:12 BP 113/56 L 06/27/20 05:12 Pulse Ox 99 06/27/20 05:12 Weight - Most Recent: 82.372 kg I&O - Last 24 hours: Intake & Output 06/26/20 06/27/20 06/27/20 22:59 06:59 14:59 Intake Total 800 2300 Output Total 600 3100 Balance 200 -800 Lab Results - Last 24 hrs: Laboratory Results - last 24 hr 06/26/20 Range/Units 06:00 Blood Type AB POSITIVE Gel Antibody Screen Negative AMBAR Results - Last 24 hrs: Microbiology 06/24/20 19:43 Aerobic Blood Culture - Preliminary Blood - Venous - Lab Draw NO GROWTH AFTER 2 DAYS Anaerobic Blood Culture - Preliminary NO GROWTH AFTER 2 DAYS 06/24/20 19:35 Aerobic Blood Culture - Preliminary Blood - Venous NO GROWTH AFTER 2 DAYS Anaerobic Blood Culture - Preliminary NO GROWTH AFTER 2 DAYS Med Orders - Current: Current Medications Citalopram Hydrobromide (Celexa) 20 mg PO BEDTIME [facility] Last Admin: 06/26/20 20:12 Dose: 20 mg Documented by: Potassium Chloride/Dextrose/Sod Cl (D5 1/2 Ns W/ 20 Meq/L Kcl) 1,000 mls @ 75 mls/hr IV ASDIRECTED [facility] Last Admin: 06/26/20 16:09 Dose: 75 mls/hr Documented by: Ibuprofen (Motrin) 800 mg PO Q8H [facility] Last Admin: 06/27/20 00:34 Dose: 800 mg Documented by: Levothyroxine Sodium (Synthroid) 88 mcg PO DAILY [facility] Last Admin: 06/26/20 08:22 Dose: 88 mcg Documented by: Ondansetron HCl (Zofran) 4 mg IV Q6H PRN PRN Reason: Nausea Last Admin: 06/26/20 18:05 Dose: 4 mg Documented by: Oxycodone HCl (Oxycodone) 5 mg PO Q4H PRN PRN Reason: Pain (moderate 4-6) Last Admin: 06/27/20 05:18 Dose: 5 mg Documented by: Pantoprazole Sodium (Protonix Iv) 40 mg IV Q24H [facility] Last Admin: 06/26/20 08:23 Dose: 40 mg Documented by: Sodium Chloride (Saline Flush) 10 ml FLUSH ASDIRECTED PRN PRN Reason: Keep Vein Open Last Admin: 06/23/20 08:52 Dose: 10 ml Documented by: Discontinued Medications Bupivacaine HCl (Marcaine 0.5%) Confirm Administered Dose 30 ml .ROUTE .STK-MED ONE Stop: 06/26/20 08:07 Bupivacaine HCl/Epinephrine Bitart (Marcaine 0.5%/Epinephrine 1:200,000) Confirm Administered Dose 50 ml .ROUTE .STK-MED ONE Stop: 06/26/20 12:27 Last Admin: 06/26/20 14:06 Dose: 50 ml Documented by: Cefazolin Sodium (Ancef) Confirm Administered Dose 2 gm .ROUTE .STK-MED ONE Stop: 06/26/20 10:50 Dexamethasone (Dexamethasone) Confirm Administered Dose 20 mg .ROUTE .STK-MED ONE Stop: 06/26/20 10:50 Diphenhydramine HCl (Benadryl) 25 mg IVPUSH Q6H PRN PRN Reason: pruritis Stop: 06/26/20 18:00 Ephedrine Sulfate (Ephedrine Sulfate) 5 mg IVPUSH ASDIRECTED PRN PRN Reason: Hypotension Stop: 06/26/20 18:00 Fentanyl (Sublimaze) 100 mcg IVPUSH ONETIME ONE Stop: 06/23/20 12:18 Last Admin: 06/23/20 13:18 Dose: 50 mcg Documented by: Fentanyl (Sublimaze) 50 mcg IVPUSH Q4H PRN PRN Reason: Abdominal Pain Last Admin: 06/25/20 16:34 Dose: 50 mcg Documented by: Fentanyl (Sublimaze) Confirm Administered Dose 250 mcg .ROUTE .STK-MED ONE Stop: 06/26/20 10:51 Fentanyl (Sublimaze) 50 mcg IVPUSH Q5M PRN PRN Reason: Pain Stop: 06/26/20 18:00 Fentanyl (Sublimaze) Confirm Administered Dose 100 mcg .ROUTE .STK-MED ONE Stop: 06/26/20 14:28 Glycopyrrolate () Confirm Administered Dose 1 mg .ROUTE .STK-MED ONE Stop: 06/26/20 10:50 Hydromorphone HCl (Dilaudid) 1 mg IVPUSH ONETIME ONE Stop: 06/23/20 08:10 Last Admin: 06/23/20 08:51 Dose: 1 mg Documented by: Hydromorphone HCl (Dilaudid) 0.5 mg IVPUSH ONETIME ONE Stop: 06/23/20 10:49 Last Admin: 06/23/20 10:56 Dose: 0.5 mg Documented by: Hydromorphone HCl (Dilaudid) Confirm Administered Dose 0.5 mg .ROUTE .STK-MED ONE Stop: 06/26/20 10:50 Hydromorphone HCl (Dilaudid) 0.5 mg IVPUSH ONETIME PRN PRN Reason: Pain Stop: 06/26/20 18:00 Hydromorphone HCl (Dilaudid) Confirm Administered Dose 0.5 mg .ROUTE .STK-MED ONE Stop: 06/26/20 14:08 Sodium Chloride (Normal Saline) 1,000 mls @ 1,000 mls/hr IV .BOLUS STA Stop: 06/23/20 09:07 Last Admin: 06/23/20 08:51 Dose: 1,000 mls/hr Documented by: Ceftriaxone Sodium 2 gm/ (Sodium Chloride) 100 mls @ 200 mls/hr IV ONETIME ONE Stop: 06/23/20 11:00 Last Admin: 06/23/20 10:42 Dose: 200 mls/hr Documented by: Lactated Ringer's (Ringers, Lactated) 1,000 mls @ 100 mls/hr IV ASDIRECTED [facility] Last Admin: 06/23/20 11:22 Dose: 100 mls/hr Documented by: Lactated Ringer's (Ringers, Lactated) 1,000 mls @ 150 mls/hr IV ASDIRECTED [facility] Last Admin: 06/25/20 07:52 Dose: 150 mls/hr Documented by: Ondansetron HCl 4 mg/ Sodium (Chloride) 52 mls @ 100 mls/hr IV Q6H PRN PRN Reason: Nausea Pantoprazole Sodium 40 mg/ (Sodium Chloride) 100 mls @ 200 mls/hr IV DAILY [facility] Sodium Chloride (Normal Saline) 1,000 mls @ 999 drops/hr IV ONETIME ONE Stop: 06/25/20 10:20 Last Admin: 06/24/20 19:54 Dose: 999 drops/hr Documented by: Lidocaine HCl (Xylocaine-Mpf 1%) Confirm Administered Dose 4 mls @ as directed .ROUTE .STK-MED ONE Stop: 06/26/20 10:50 Lactated Ringer's (Ringers, Lactated) Confirm Administered Dose 1,000 mls @ as directed .ROUTE .STK-MED ONE Stop: 06/26/20 10:50 Phenylephrine HCl 1 mg/ Sodium (Chloride) 10.1 mls @ 1 mls/sec IV TITRATE PRN; Protocol PRN Reason: SEE COMMENT Stop: 06/26/20 18:00 Ketorolac Tromethamine (Toradol) 15 mg IVPUSH Q6H [facility] Stop: 06/25/20 08:00 Last Admin: 06/25/20 07:53 Dose: 15 mg Documented by: Ketorolac Tromethamine (Toradol) Confirm Administered Dose 30 mg .ROUTE .STK-MED ONE Stop: 06/26/20 10:50 Midazolam HCl (Versed 1 Mg/Ml) Confirm Administered Dose 2 mg .ROUTE .STK-MED ONE Stop: 06/26/20 10:50 Midazolam HCl (Versed 1 Mg/Ml) 2 mg IVPUSH ONETIME PRN PRN Reason: Sedation Stop: 06/26/20 18:00 Miscellaneous Medication (Phenylephrine 1 Mg/10 Ml-Ns) Confirm Administered Dose 1 mg IV .STK-MED ONE Stop: 06/26/20 10:50 Neostigmine Methylsulfate (Neostigmine Methylsulfate) Confirm Administered Dose 5 mg .ROUTE .STK-MED ONE Stop: 06/26/20 10:50 Ondansetron HCl (Zofran) 4 mg IVPUSH ONETIME ONE Stop: 06/23/20 08:09 Last Admin: 06/23/20 08:51 Dose: 4 mg Documented by: Ondansetron HCl (Zofran) 4 mg IVPUSH ONETIME ONE Stop: 06/23/20 11:41 Last Admin: 06/23/20 11:47 Dose: 4 mg Documented by: Ondansetron HCl (Zofran) Confirm Administered Dose 4 mg .ROUTE .STK-MED ONE Stop: 06/26/20 10:50 Ondansetron HCl (Zofran) 4 mg IVPUSH ONETIME PRN PRN Reason: Nausea/Vomiting Stop: 06/26/20 18:00 Potassium Chloride (Klor-Con M20) 20 meq PO ONETIME ONE Stop: 06/24/20 21:05 Last Admin: 06/24/20 22:07 Dose: 20 meq Documented by: Propofol (Diprivan 20 Ml) Confirm Administered Dose 200 mg .ROUTE .STK-MED ONE Stop: 06/26/20 10:50 Rocuronium [place] (Zemuron) Confirm Administered Dose 50 mg .ROUTE .STK-MED ONE Stop: 06/26/20 10:50
[2020-06-27] MEDS: Levothyroxine 88 MCG Tab PO SCH (09:41)
[2020-06-27] MEDS: Pantoprazole 40 MG Vial IV SCH (09:43)
== END 2020-06-27 10:27 | disposition home or self-care (01) | DRG 419 ==
LOC: JD.ED 06:52 → INTOOBSV 15:09 → JD.MS 15:09 → OBSVTOIN 06-25 08:58
PROVIDERS: ADMIT Surgery; ATTEND Surgery
PROC: 0FT44ZZ Resection of Gallbladder, Percutaneous Endoscopic Approach (ICD-10-PCS; principal; 2020-06-26)
DX: K85.10 Biliary acute pancreatitis without necrosis or infection (principal); F41.9 Anxiety disorder, unspecified; E11.9 Type 2 diabetes mellitus without complications; E03.9 Hypothyroidism, unspecified; Z20.828 Contact with and (suspected) exposure to other viral communicable diseases; Z79.890 Hormone replacement therapy; Z79.899 Other long term (current) drug therapy
CPT/HCPCS: 36415; 74181; 74181-26; 76705; 76705-26; 80053; 81001; 82248; 83690; 84703; 85025; 85027; 86850; 86900; 86901; 87040; 96361; 96365; 96375; 96376; 99284; 99285-25; A9270-GY; C9113; G0378; J0690; J0696; J1100; J1170; J1885; J2001; J2250; J2370; J2405; J2704; J2710; J3010; J3480; J3490; J7030; J7050; J7120; U0002

== ENCOUNTER 2022-04-24 01:53 | Inpatient (IN) | payer SELFPAY ==
[2022-04-24] MEDS ORDERED: Sodium Chloride 0.9% 10 ML Syringe FLUSH PRN (01:59)
[2022-04-24] MEDS ORDERED: Nalbuphine HCl 10 MG/ 1ML Amp IVPUSH PRN (01:59)
[2022-04-24] MEDS ORDERED: Lactated Ringers 1,000 ML IV SCH (02:00)
[2022-04-24] MEDS ORDERED: Oxytocin 10 Units/1 ML SDV IM ONE (02:01)
[2022-04-24] MEDS ORDERED: Oxytocin/Lactated Ringers 10 UNIT/1,000 ML BAG IV SCH (02:15)
[2022-04-24] MEDS ORDERED: Witch Hazel Medicated Pads 40/Jar TOP PRN (03:21)
[2022-04-24] MEDS ORDERED: Acetaminophen 325 MG Tab PO PRN (03:21)
[2022-04-24] MEDS ORDERED: Benzocaine/Menthol 20%-0.5% Spray 78 GM Cannister TOP PRN (03:21)
[2022-04-24] MEDS: Ibuprofen 600 MG Tab PO PRN ×3 (04:00→20:35)
[2022-04-24] MEDS ORDERED: Sodium Chloride 0.9% 10 ML Syringe FLUSH SCH (09:00)
[2022-04-24] MEDS ORDERED: Levothyroxine 125 MCG Tab PO SCH (09:00)
[2022-04-24] MEDS: Prenatal Multivitamin with Calcium/Folic Acid/Iron Tab PO SCH (10:00)
[2022-04-24] MEDS: Citalopram 20 MG Tab PO SCH (21:55)
[2022-04-25] MEDS: Levothyroxine 25 MCG Tab PO SCH (07:20)
[2022-04-25] MEDS: Levothyroxine 112 MCG Tab PO SCH (07:20)
[2022-04-25] MEDS: Ibuprofen 600 MG Tab PO PRN ×2 (09:38→21:02)
[2022-04-25] MEDS: Prenatal Multivitamin with Calcium/Folic Acid/Iron Tab PO SCH (10:20)
[2022-04-25] MEDS: Citalopram 20 MG Tab PO SCH (21:00)
[2022-04-25] MEDS: Docusate Sodium 100 MG Cap PO PRN (21:02)
[2022-04-26] MEDS: Levothyroxine 25 MCG Tab PO SCH (06:45)
[2022-04-26] MEDS: Levothyroxine 112 MCG Tab PO SCH (06:45)
[2022-04-26] MEDS: Ibuprofen 600 MG Tab PO PRN (09:29)
[2022-04-26] MEDS: Docusate Sodium 100 MG Cap PO PRN (09:29)
[2022-04-26] MEDS: Prenatal Multivitamin with Calcium/Folic Acid/Iron Tab PO SCH (11:05)
== END 2022-04-26 09:55 | disposition home or self-care (01) | DRG 807 ==
LOC: JD.US 01:53 → JD.OB 02:00 → OBSVTOIN 02:38 → JD.OB 02:38
PROVIDERS: ADMIT Obstetrics & Gynecology; ATTEND Obstetrics & Gynecology
PROC: 10E0XZZ Delivery of Products of Conception, External Approach (ICD-10-PCS; principal; 2022-04-24)
DX: O62.3 Precipitate labor (principal); Z37.0 Single live birth; O24.429 Gestational diabetes mellitus in childbirth, unspecified control; Z3A.38 38 weeks gestation of pregnancy; O99.284 Endocrine, nutritional and metabolic diseases complicating childbirth; E03.9 Hypothyroidism, unspecified; O99.344 Other mental disorders complicating childbirth; F41.1 Generalized anxiety disorder; O99.824 Streptococcus B carrier state complicating childbirth; Z79.890 Hormone replacement therapy; Z79.899 Other long term (current) drug therapy
CPT/HCPCS: 36415; 59025; 59409; 85025; 86592; A9270-GY; J2590